=== PATIENT | male | born 1935 | race African-American/Black ===

== ENCOUNTER → 2016-10-02 | Outpatient (CLI) | payer MEDICARE | LOC: OD 09:43 | PROVIDERS: ATTEND Family Medicine | DX: M25.511 Pain in right shoulder (principal) ==

== ENCOUNTER → 2017-04-19 | Outpatient (CLI) | payer MEDICARE ==
--- NOTE | 2017-04-20 08:57 | XCELERA REPORT ---
[address] [address] Transthoracic Echocardiogram Report Name: JACI PALOMO Age: 82 yrs Gender: Male : 1935 Patient Status: Outpatient Patient Location: Study Date: 04/19/2017 09:46 AM Height: 65 in Weight: 171 lb BSA: 1.9 m2 Procedure: A complete two-dimensional transthoracic echocardiogram was performed (2D, M-mode, spectral and color flow Doppler). The study was technically adequate with some images being suboptimal in quality. Reason For Study: RBBB Ordering Physician: ZENAIDA BRAGA Performed By: Anne Cottrell Interpretation Summary The left ventricular ejection fraction is normal. There is normal left ventricular wall thickness. The left ventricle is grossly normal size. Doppler measurements suggest pseudonormalized left ventricular relaxation, which is associated with grade II/IV or mild to moderate diastolic dysfunction The right ventricular systolic function is normal. The right atrium is normal in size The left atrial size is normal. There is a trace to mild amount of mitral regurgitation There is no mitral valve stenosis. No aortic regurgitation is present. There is no aortic valve stenosis There is a trace or physiologic amount of tricuspid regurgitation Tricuspid regurgitation jet envelope not well defined to measure RV systolic pressure accurately. The aortic root is not well visualized. The inferior vena cava was not well visualized There is no pericardial effusion. MMode/2D Measurements & Calculations RVDd: 3.2 cm LVIDd: 4.7 cm FS: 35.8 % Ao root diam: 2.8 cm IVSd: 0.86 cm LVIDs: 3.0 cm EDV(Teich): 103.6 ml LVPWd: 0.89 cm ESV(Teich): 36.0 ml Ao root area: 6.1 cm2 EF(Teich): 65.3 % Doppler Measurements & Calculations MV E max bassem: MV dec slope: Ao V2 max: LV V1 max P.5 cm/sec 113.7 cm/sec 2.6 mmHg MV A max bassem: 202.2 cm/sec2 Ao max PG: LV V1 max: 72.2 cm/sec MV dec time: 5.2 mmHg 80.6 cm/sec MV E/A: 0.60 0.22 sec PA V2 max: PI end-d bassem: TR max bassem: 78.2 cm/sec 100.0 cm/sec 215.2 cm/sec PA max PG: TR max P.4 mmHg 18.8 mmHg Left Ventricle The left ventricle is grossly normal size. There is normal left ventricular wall thickness. The left ventricular ejection fraction is normal. Doppler measurements suggest pseudonormalized left ventricular relaxation, which is associated with grade II/IV or mild to moderate diastolic dysfunction. Right Ventricle Borderline right ventricular enlargement. There is normal right ventricular wall thickness. The right ventricular systolic function is normal. Atria The right atrium is normal in size. The left atrial size is normal. Interarterial septum not well visualized and not well dopplered. Cannot comment on ASD/PFO presence. Mitral Valve The mitral valve is grossly normal. There is no mitral valve stenosis. There is a trace to mild amount of mitral regurgitation. Aortic Valve The aortic valve is grossly normal. There is no aortic valve stenosis. No aortic regurgitation is present. Tricuspid Valve The tricuspid valve is not well visualized, but is grossly normal. There is no tricuspid stenosis. There is a trace or physiologic amount of tricuspid regurgitation. Tricuspid regurgitation jet envelope not well defined to measure RV systolic pressure accurately. Pulmonic Valve The pulmonic valve is not well visualized. Great Vessels The aortic root is not well visualized. The inferior vena cava was not well visualized. Effusions There is no pericardial effusion. : ZENAIDA BRAGA > Javed Chicas
== END ==
LOC: SP 09:34
PROVIDERS: ATTEND Family Medicine
DX: I45.10 Unspecified right bundle-branch block (principal)
CPT/HCPCS: 93306

== ENCOUNTER 2017-06-30 07:35 | Day surgery (SDC) | payer MEDICARE ==
[~2017-06-30 07:35] MED LIST: KETOROLAC TROMETHAMINE 0.45% 4 DROP/0.4 ML DROPERETTE OD PRN
[2017-06-30] MEDS: CYCLOPENTOLATE 0.2%/PHENYLEPHRINE 1% OPH SOLN 2 ML OD PRN ×3 (08:02→08:22)
[2017-06-30] MEDS: TROPICAMIDE 1% OPH SOLN 3 ML OD PRN ×3 (08:02→08:22)
[2017-06-30] MEDS: TETRACAINE HCL 0.5% OPH SOLN 0.6 ML DROPERETTE OD PRN ×4 (08:03→08:32)
[2017-06-30] MEDS: BESIFLOXACIN HCL 0.6% OPH SUSP 5 ML BOTTLE OD PRN ×4 (08:03→08:58)
[2017-06-30] MEDS ORDERED: MIDAZOLAM 2 MG/2 ML INJ ONE (08:14)
[2017-06-30] MEDS: CHONDR SU A NA/HYALUR INTRAOC KIT (SURGICARE) ONE ×2 (08:46)
[2017-06-30] MEDS: EPINEPHRINE INJ/PF 1 MG/1 ML AMPULE ONE ×2 (08:46)
[2017-06-30] MEDS: LIDOCAINE 1% INJ-PF (10 MG/ML) 30 ML SDV ONE ×2 (08:46)
[2017-06-30] MEDS: TOBRAMYCIN SULFATE/DEXAMETH OPH OINTMENT 3.5 GM ONE ×2 (08:58)
== END 2017-06-30 09:37 | disposition home or self-care (01) ==
LOC: SC 07:35
PROVIDERS: ATTEND Ophthalmology
PROC: 08RJ3JZ Replacement of Right Lens with Synthetic Substitute, Percutaneous Approach (ICD-10-PCS; principal; 2017-06-30 08:30)
DX: H25.11 Age-related nuclear cataract, right eye (principal); E11.9 Type 2 diabetes mellitus without complications; I10 Essential (primary) hypertension; E07.9 Disorder of thyroid, unspecified; Z79.82 Long term (current) use of aspirin; Z79.899 Other long term (current) drug therapy; Z88.0 Allergy status to penicillin; Z79.84 Long term (current) use of oral hypoglycemic drugs
CPT/HCPCS: 66984; 82962; V2630; J2250; J3490 ×3; A9270; J0171; 142

== ENCOUNTER 2017-07-14 07:21 | Day surgery (SDC) | payer MEDICARE ==
[~2017-07-14 07:21] MED LIST changes: +CHONDR SU A NA/HYALUR INTRAOC KIT (SURGICARE) ONE; +EPINEPHRINE INJ/PF 1 MG/1 ML AMPULE ONE; -KETOROLAC TROMETHAMINE 0.45% 4 DROP/0.4 ML DROPERETTE OD PRN; +KETOROLAC TROMETHAMINE 0.45% 4 DROP/0.4 ML DROPERETTE OS PRN; +LIDOCAINE 1% INJ-PF (10 MG/ML) 30 ML SDV ONE; +TOBRAMYCIN SULFATE/DEXAMETH OPH OINTMENT 3.5 GM ONE
[2017-07-14] MEDS: CYCLOPENTOLATE 0.2%/PHENYLEPHRINE 1% OPH SOLN 2 ML OS PRN ×3 (07:50→08:08)
[2017-07-14] MEDS: TETRACAINE HCL 0.5% OPH SOLN 0.6 ML DROPERETTE OS PRN ×3 (07:50→08:12)
[2017-07-14] MEDS: TROPICAMIDE 1% OPH SOLN 3 ML OS PRN ×3 (07:51→08:08)
[2017-07-14] MEDS: BESIFLOXACIN HCL 0.6% OPH SUSP 5 ML BOTTLE OS PRN ×3 (07:52→08:32)
[2017-07-14] MEDS ORDERED: MIDAZOLAM 2 MG/2 ML INJ ONE ×2 (07:59→08:00)
== END 2017-07-14 09:12 | disposition home or self-care (01) ==
LOC: SC 07:21
PROVIDERS: ATTEND Ophthalmology
PROC: 08RK3JZ Replacement of Left Lens with Synthetic Substitute, Percutaneous Approach (ICD-10-PCS; principal; 2017-07-14 08:15)
DX: H25.12 Age-related nuclear cataract, left eye (principal); Z98.41 Cataract extraction status, right eye; E05.90 Thyrotoxicosis, unspecified without thyrotoxic crisis or storm; I49.9 Cardiac arrhythmia, unspecified; E11.9 Type 2 diabetes mellitus without complications; Z79.82 Long term (current) use of aspirin; Z88.0 Allergy status to penicillin; Z79.899 Other long term (current) drug therapy
CPT/HCPCS: 66984; 82962; V2630; J2250; J3490 ×3; A9270; J0171; 142

== ENCOUNTER → 2020-04-18 | Outpatient (CLI) | payer MEDICARE ==
--- NOTE | 2020-04-18 16:30 | RADIOLOGY REPORT (SQ) ---
EXAM DESCRIPTION: L SPINE WHOLE IMAGES COMPLETED DATE/TIME: 04/18/2020 4:24 pm REASON FOR STUDY: M54.10 RADICULOPATHY, SITE UNSPECIFIED M25.559 PAIN IN UNSPECIFIED HIP M54.10 RA DICULOPATHY, SITE UNSPECIFIED COMPARISON: None. NUMBER OF VIEWS: Five views including obliques. TECHNIQUE: AP, lateral, oblique, and sacral radiographic images acquired of the lumbar spine. LIMITATIONS: None. FINDINGS: MINERALIZATION: Normal. SEGMENTATION: Normal. No transitional anatomy. ALIGNMENT: Normal. VERTEBRAE: Maintained height. No fracture or worrisome bone lesion. DISCS: Multilevel disc space narrowing with osteophytes. POSTERIOR ELEMENTS: Pedicles and facets are intact. No pars defect or posterior arch defects. Facet arthropathy is present. HARDWARE: None in the spine. PARASPINAL SOFT TISSUES: Normal. PELVIS: Intact as visualized. No fractures or worrisome bone lesions. SI joints intact. OTHER: No other significant finding. IMPRESSION: SPONDYLOSIS WITHOUT BONE LESION OR FRACTURE. TECHNICAL DOCUMENTATION: JOB ID: [id number] 2010 [employer]- All Rights Reserved Reading location - IP/workstation name: [email or web address]
--- NOTE | 2020-04-18 16:31 | RADIOLOGY REPORT (SQ) ---
EXAM DESCRIPTION: HIP LEFT AP/LATERAL IMAGES COMPLETED DATE/TIME: 04/18/2020 4:24 pm REASON FOR STUDY: M25.559 PAIN IN UNSPECIFIED HIP M25.559 PAIN IN UNSPECIFIED HIP M54.10 RADICULOP ATHY, SITE UNSPECIFIED COMPARISON: None. NUMBER OF VIEWS: Two views. TECHNIQUE: AP pelvis and additional frog legview of the left hip. LIMITATIONS: None. FINDINGS: MINERALIZATION: Normal. LEFT HIP: No fracture or dislocation. No worrisome bone lesions. No contour deformity. No joint spa ce narrowing. Sclerosis with small osteophytes. RIGHT HIP: No fracture or dislocation. No worrisome bone lesions. Sclerosis with small osteophytes. Limited views. PUBIS AND ISCHIUM: No fracture. PELVIS: No fracture. SACRUM: No fracture or dislocation. No worrisome bone lesions. LOWER LUMBAR SPINE: No fracture or dislocation. No worrisome bone lesions. No significant disc disea se. SOFT TISSUES: No findings. OTHER: No other significant finding. IMPRESSION: MILD DEGENERATIVE CHANGES. NO ACUTE FINDINGS. TECHNICAL DOCUMENTATION: JOB ID: [id number] 2010 [employer]- All Rights Reserved Reading location - IP/workstation name: [email or web address]
== END ==
LOC: RAD 16:05
PROVIDERS: ATTEND Family Medicine
DX: M16.12 Unilateral primary osteoarthritis, left hip (principal); M25.552 Pain in left hip; M47.26 Other spondylosis with radiculopathy, lumbar region
CPT/HCPCS: 72110

== ENCOUNTER 2020-06-21 14:42 | Inpatient (IN) | payer MEDICARE ==
--- NOTE | 2020-06-21 15:29 | RADIOLOGY REPORT (SQ) ---
EXAM DESCRIPTION: CHEST SINGLE VIEW IMAGES COMPLETED DATE/TIME: 06/21/2020 3:16 pm REASON FOR STUDY: shortness of breath COMPARISON: None. EXAM PARAMETERS: NUMBER OF VIEWS: One view. TECHNIQUE: Single frontal radiographic view of the chest acquired. RADIATION DOSE: NA LIMITATIONS: None. FINDINGS: LUNGS AND PLEURA: There is ill-defined opacification in the left lower lung field. No foc al consolidation. MEDIASTINUM AND HILAR STRUCTURES: No masses. Contour normal. HEART AND VASCULAR STRUCTURES: Heart normal in size. Normal vasculature. BONES: No acute findings. HARDWARE: None in the chest. OTHER: No other significant finding. IMPRESSION: Cannot exclude a limited left lower lobe pneumonia. TECHNICAL DOCUMENTATION: JOB ID: [id number] 2010 [employer]- All Rights Reserved Reading location - IP/workstation name: [email or web address]
[2020-06-21 15:38] LABS: VENOUS BLOOD BASE EXCESS -0.6 mmol/L; VENOUS BLOOD HCO3 24.6 mmol/L (20-32); VENOUS BLOOD PCO2 42.6 mmHg (35-63); VENOUS BLOOD PH 7.38 (7.30-7.42)
[2020-06-21] MEDS ORDERED: NORMAL SALINE 1000 ML 1,000 ML IV ONE (15:39)
--- NOTE | 2020-06-21 15:39 | ER Document Report ---
ED Respiratory Problem - General Chief Complaint: Shortness Of Breath Stated Complaint: SHORT OF BREATH Time Seen by Provider: 06/21/20 15:32 Mode of Arrival: Medic Information source: Patient Notes: 85-year-old man presenting to the emergency department history of diagnosed with coronavirus on Wednesday of this past week 06/18/2020. He complains of increasing weakness over the past week along with loss of smell and taste. He is a poor intake as well as increasing cough and over the past 24 hours shortness of breath. His granddaughter is also positive for coronavirus. History of diabet es mellitus TRAVEL OUTSIDE OF THE [place] IN LAST 30 DAYS: No - Related Data Allergies/Adverse Reactions: Penicillins Allergy (Intermediate, Verified 06/24/17 14:33) Hives Past Medical History - General Information source: Patient - Social History Smoking Status: Unknown if Ever Smoked Family History: Reviewed & Not Pertinent - Past Medical History Cardiac Medical History: Denies: Hx Heart Attack, Hx Hypertension Pulmonary Medical History: Denies: Hx Asthma Neurological Medical History: Denies: Hx Cerebrovascular Accident, Hx Seizures GI Medical History: Denies: Hx Hepatitis, Hx Hiatal Hernia, Hx Ulcer Infectious Medical History: Denies: Hx Hepatitis Past Surgical History: Denies: Hx Open Heart Surgery, Hx Pacemaker Review of Systems - Review of Systems Notes: Constitutional: Negative for fever. HENT: Negative for sore throat. Eyes: Negative for visual changes. Cardiovascular: See HPI Respiratory: Negative for shortness of breath. Gastrointestinal: Negative for abdominal pain, vomiting or diarrhea. Genitourinary: Negative for dysuria. Musculoskeletal: Negative for back pain. Skin: Negative for rash. Neurological: Negative for headaches, weakness or numbness. 10 point ROS negative except as marked above and in HPI. Physical Exam - Vital signs Vitals: Pulse Ox 86 L 06/21/20 15:03 - Notes Notes: PHYSICAL EXAMINATION: Physical Exam: General: Well-nourished well-developed 85-year-old male in with shortness of breath HEENT: NC/AT, pupils equal round and reactive to light, MM moist,nares clear, oropharynx clear, airway patent Neck: supple, no adenopathy, no masses. Good range of motion Lungs: clear, no wheezing, no rales no rhonchi CVS: Regular rate and rhythm no murmur gallop or rub Abdomen: Soft, active, nontender, no masses, no hepatosplenomegaly Ext: No edema, clubbing or cyanosis. Neuro: Alert and responsive, moving all 4 extremities on command, cranial nerves intact, no focal findings Skin: Intact no open lesions, no rash Course - Re-evaluation Re-evalutation: 06/21/20 18:17 Patient with known coronavirus 19 positive outpatient tests 06/18/2020. Presents with pneumonia and hypoxia. He is being admitted to the hospital, tammy lemus has an allergy to penicillin states he had a rash many years ago. I am giving him ceftriaxone 1 g IV along with Zithromax 100 mg IV and Decadron 6 mg IV. I have discussed the patient with the hospitalist and Dr. Zee will await the patient to the hospital for further evaluation and treatment. - Vital Signs Vital signs: Temp Pulse Resp BP Pulse Ox 101.1 F H 23 H 134/79 H 91 L 06/21/20 16:00 06/21/20 16:00 06/21/20 16:00 06/21/20 16:00 - Laboratory Results Result Diagrams: 06/21/20 15:16 06/21/20 15:16 Laboratory Results Interpreted: 06/21/20 06/21/20 06/21/20 15:16 15:16 15:20 Hgb 12.8 L Lymph % (Auto) 11.8 L Seg Neutrophils % 78.6 H ESR D-Dimer Carbonic Acid 1.03 L ABG pCO2 34.1 L ABG pO2 51.4 L ABG O2 Saturation 87.7 L Sodium 132.7 L Chloride 97 L BUN 23 H Creatinine 1.50 H Est GFR ( Amer) 54 L Est GFR (MDRD) Non-Af 45 L Glucose 140 H Ferritin AST 70 H Lactate Dehydrogenase C-Reactive Protein Urine Protein Urine Ascorbic Acid 06/21/20 06/21/20 06/21/20 15:43 15:43 15:43 Hgb Lymph % (Auto) Seg Neutrophils % ESR 60 H D-Dimer 1.44 H Carbonic Acid ABG pCO2 ABG pO2 ABG O2 Saturation Sodium Chloride BUN Creatinine Est GFR ( Amer) Est GFR (MDRD) Non-Af Glucose Ferritin AST Lactate Dehydrogenase C-Reactive Protein 36.7 H Urine Protein Urine Ascorbic Acid 06/21/20 06/21/20 15:43 16:30 Hgb Lymph % (Auto) Seg Neutrophils % ESR D-Dimer Carbonic Acid ABG pCO2 ABG pO2 ABG O2 Saturation Sodium Chloride BUN Creatinine Est GFR ( Amer) Est GFR (MDRD) Non-Af Glucose Ferritin 1050.00 H AST Lactate Dehydrogenase 467 H C-Reactive Protein Urine Protein 30 H Urine Ascorbic Acid 40 H I have reviewed laboratory data and used this information for the treatment decisions regarding the patient. Critical Laboratory Results Reviewed: No Critical Results - Radiology Results Radiology Results Interpreted: 06/21/20 17:55 Chest X-Ray 06/21/20 15:03 IMPRESSION: Cannot exclude a limited left lower lobe pneumonia. Critical Radiology Results Reviewed: No Critical Results - EKG Interpretation by [place] Rate: Normal - EKG interpreted by Dr. Sales: Normal sinus rhythm, rate 99, MT interval 124 ms QT interval 368 ms, left axis deviation, right bundle branch block, no acute ST or T wave abnormalities, , there is no prior EKG for comparison. Interpretation: Abnormal EKG Discharge - Discharge Clinical Impression: SARS-associated coronavirus infection, Hypoxia Pneumonia Qualifiers: Pneumonia type: due to unspecified organism Laterality: left Lung location: lower lobe of lung Qualified Code(s): J18.9 - Pneumonia, unspecified organism Condition: Good Disposition: ADMITTED INPATIENT Admitting Provider: Saadia (Hospitalist) Unit Admitted: [facility]
[2020-06-21 15:41] LABS: ARTERIAL BLOOD BASE EXCESS -1.6 mmol/L; ARTERIAL BLOOD H2CO3 1.03 mmol/L (1.05-1.35); ARTERIAL BLOOD HCO3 22.1 mmol/L (20-24); ARTERIAL BLOOD O2 SATURATION 87.7 % (94-98); ARTERIAL BLOOD PCO2 34.1 mmHg (35-45); ARTERIAL BLOOD PH 7.43 (7.35-7.45); ARTERIAL BLOOD PO2 51.4 mmHg (80-100); ARTERIAL BLOOD TOTAL CO2 23.1 mmol/L (23-27)
[2020-06-21 15:42] LABS: ARTERIAL BLOOD FIO2 6L
[2020-06-21] MEDS ORDERED: DEXAMETHASONE SOD PHOS INJ 10 MG/1 ML VIAL IV ONE (15:46)
[2020-06-21 15:51] LABS: ABSOLUTE LYMPHOCYTES (AUTO) 1.1 10^3/uL (0.5-4.7); ABSOLUTE MONOCYTES (AUTO) 0.9 10^3/uL (0.1-1.4); ABSOLUTE NEUT (AUTO) 7.4 10^3/uL (1.7-8.2); BASOPHILS % (AUTO) 0.4 % (0-2); HEMATOCRIT 39.9 % (37.9-51.0); HEMOGLOBIN 12.8 g/dL (13.5-17.0); LYMPHOCYTES % (AUTO) 11.8 % (13-45); MEAN CORPUSCULAR HEMOGLOBIN 28.8 pg (27.0-33.4); MEAN CORPUSCULAR HGB CONC 32.1 g/dL (32.0-36.0); MEAN CORPUSCULAR VOLUME 90 fl (80-97); MONOCYTES % (AUTO) 9.2 % (3-13); PLATELET COUNT 230 10^3/uL (150-450); RED BLOOD COUNT 4.44 10^6/uL (4.35-5.55); RED CELL DISTRIBUTION WIDTH 12.2 % (11.5-14.0); SEGMENTED NEUTROPHILS % (AUTO) 78.6 % (42-78); TOTAL CELLS COUNTED % (AUTO) 100 %; WHITE BLOOD COUNT 9.4 10^3/uL (4.0-10.5)
[2020-06-21 15:54] LABS: ALBUMIN 4.1 g/dL (3.5-5.0); ALKALINE PHOSPHATASE 80 U/L (38-126); ANION GAP 10 (5-19); ASPARTATE AMINO TRANSFERASE 70 U/L (17-59); BILIRUBIN,DIRECT 0.1 mg/dL (0.0-0.4); BILIRUBIN,TOTAL 1.2 mg/dL (0.2-1.3); BLOOD UREA NITROGEN 23 mg/dL (7-20); CALCIUM 8.8 mg/dL (8.4-10.2); CARBON DIOXIDE 26 mmol/L (22-30); CHLORIDE 97 mmol/L (98-107); GLUCOSE 140 mg/dL (75-110); POTASSIUM 4.4 mmol/L (3.6-5.0); TOTAL PROTEIN 7.8 g/dL (6.3-8.2)
[2020-06-21] MEDS ORDERED: ACETAMINOPHEN 325 MG TABLET PO ONE (16:26)
[2020-06-21 17:07] LABS: APPEARANCE,URINE CLEAR; BILIRUBIN,URINE NEGATIVE (NEGATIVE); COLOR,URINE YELLOW; GLUCOSE, URINE NEGATIVE (NEGATIVE); KETONES,URINE NEGATIVE (NEGATIVE); LEUKOCYTE ESTERASE,URINE NEGATIVE (NEGATIVE); NITRITE,URINE NEGATIVE (NEGATIVE); PROTEIN,URINE 30 mg/dL (NEGATIVE); URINE SPECIFIC GRAVITY 1.011; UROBILINOGEN,URINE NEGATIVE mg/dL (<2.0)
[2020-06-21] MEDS ORDERED: CEFTRIAXONE INJ 1000 MG VIAL IV ONE (17:46)
[2020-06-21] MEDS ORDERED: AZITHROMYCIN INJ 500 MG VIAL IV ONE (17:48)
[2020-06-21] MEDS ORDERED: DEXTROSE 40% GEL 15 GM TUBE PO PRN ×2 (20:18)
[2020-06-21] MEDS ORDERED: DEXTROSE 50%-WATER 25 GM/50 ML DISP.SYRIN IV PRN ×2 (20:18)
[2020-06-21] MEDS ORDERED: GLUCAGON,HUMAN RECOMB 1 MG INJ IM PRN (20:18)
[2020-06-21] MEDS ORDERED: ACETAMINOPHEN 325 MG TABLET PO PRN (20:23)
[2020-06-21] MEDS ORDERED: AZTREONAM INJ 1 GM VIAL IV SCH (20:30)
[2020-06-21] MEDS ORDERED: IVERMECTIN 3 MG TABLET PO ONE (21:00)
--- NOTE | 2020-06-21 21:49 | EKG REPORT ---
SEVERITY:- ABNORMAL ECG - SINUS RHYTHM RIGHT BUNDLE BRANCH BLOCK : Confirmed by: Fan Sanchez MD 21-Jun-2020 21:49:19
[2020-06-21] MEDS: MELATONIN 5 MG TABLET PO SCH (22:46)
[2020-06-21] MEDS: ZINC SULFATE 220 MG CAPSULE PO SCH (22:47)
[2020-06-21] MEDS: CHOLECALCIFEROL (D3) 1,000 UNIT (25 MCG) TABLET PO SCH (22:48)
[2020-06-21] MEDS ORDERED: IVERMECTIN 3 MG TABLET ONE (22:49)
[2020-06-21] MEDS: INSULIN LISPRO 100 UNIT/ML 3 ML VIAL SUBCUT SCH (23:04)
[2020-06-21] MEDS: VITAMIN B COMPLEX TABLET PO SCH (23:23)
[2020-06-22] MEDS: ASCORBIC ACID 500 MG TABLET PO SCH ×4 (00:12→18:10)
[2020-06-22] MEDS: AZTREONAM 1 GM in DEXTROSE 5%-WATER 50 ML IV SCH ×3 (01:57→18:09)
[2020-06-22] MEDS: NORMAL SALINE 1000 ML 1,000 ML IV PRN ×2 (07:39→19:00)
[2020-06-22] MEDS: INSULIN LISPRO 100 UNIT/ML 3 ML VIAL SUBCUT SCH ×4 (07:39→21:43)
--- NOTE | 2020-06-22 09:38 | PDOC H&P ---
History of Present Illness Admission Date/PCP: 06/21/20 18:17 ZENAIDA BRAGA MD Patient complains of: Difficulty with breathing History of Present Illness: JACI PALOMO is a 85 year old male patient of Dr. Braga who presented to the ED with recent diagnosis of positive status for COVID-19 infection and worsening shortness of breath, particularly with exertion. Patient reported associated minimally productive cough, loss of smell and taste over last one week. He claimed associated worsening generalized weakness. He admitted exposure to his granddaughter was was recently diagnosed with faulkner virus infection. He denied any diarrhea or abdominal pain. No chest pain or palpitation. His initial ED evaluation was significant for elevation of inflammatory indices and D-Dimer, electrolytes derangement, and chest X ray suggestive of left lower lobe airspace disease process. He was advised hospitalization for further evaluation and management. His morbidities are as listed below. Past Medical History Cardiac Medical History: Denies: Myocardial Infarction, Hypertension Pulmonary Medical History: Denies: Asthma Neurological Medical History: Denies: Seizures Endocrine Medical History: Reports: Diabetes Mellitus Type 2, Hypothyroidism GI Medical History: Denies: Hepatitis, Hiatal Hernia Musculoskeltal Medical History: Reports: Arthritis Hematology: Denies: Anemia, Sickle Cell Disease Past Surgical History Past Surgical History: Denies: Pacemaker Social History Smoking Status: Unknown if Ever Smoked - Advance Directive Resuscitation Status: Full Code Family History Family History: Reviewed & Not Pertinent Parental Family History Reviewed: Yes Children Family History Reviewed: Yes Sibling(s) Family History Reviewed.: Yes Medication/Allergy Home Medications: Aspirin [Aspirin EC] 81 mg PO DAILY 06/24/17 Besifloxacin HCl [Besivance 0.6% Oph Susp 5 ml] 1 drop OP ASDIR 06/24/17 Cholecalciferol (Vitamin D3) [Vitamin D3 1000 Unit Tablet] 1,000 unit PO DAILY 06/24/17 Difluprednate [Durezol] 1 drop OP ASDIR 06/24/17 Glucosamine Sulfate Dipot Chlr [Glucosamine] 1,000 mg PO DAILY 06/24/17 Glyburide 2.5 mg PO BID 06/24/17 Ibuprofen [Advil] 200 mg PO Q4HP PRN 06/24/17 Levothyroxine Sodium [Synthroid 0.025 mg Tablet] 25 mcg PO QAM 06/24/17 Multivitamin [Multivitamins] 1 each PO DAILY 06/24/17 Nepafenac [Ilevro] 1 drop OP ASDIR 06/24/17 [place]-3 Fatty Acids/Fish Oil [Fish Oil 1,000 mg Capsule] 1 each PO DAILY 06/24/17 Psyllium Husk [Metamucil] 660 gm PO DAILY 06/24/17 Allergies/Adverse Reactions: Penicillins Allergy (Intermediate, Verified 06/24/17 14:33) Hives Review of Systems Constitutional: PRESENT: fatigue, weakness. ABSENT: chills, fever(s), headache(s) Eyes: ABSENT: visual disturbances Ears: ABSENT: hearing changes Cardiovascular: PRESENT: dyspnea on exertion. ABSENT: chest pain, edema, orth ropnea, palpitations Respiratory: PRESENT: cough, sputum. ABSENT: hemoptysis Gastrointestinal: PRESENT: other - loss of smell and taste. ABSENT: abdominal pain, constipation, diarrhea, hematemesis, hematochezia, nausea, vomiting Genitourinary: ABSENT: dysuria, hematuria Musculoskeletal: ABSENT: joint swelling Integumentary: ABSENT: rash, wounds Neurological: ABSENT: abnormal gait, abnormal speech, confusion, dizziness, focal weakness, syncope Psychiatric: ABSENT: anxiety, depression, homidical ideation, suicidal ideation Endocrine: ABSENT: cold intolerance, heat intolerance, polydipsia, polyuria Hematologic/Lymphatic: ABSENT: easy bleeding, easy bruising, lymphadenopathy Allergic/Immunologic: ABSENT: seasonal rhinorrhea Physical Exam Vital Signs: Temp Pulse Resp BP Pulse Ox 101.1 F H 23 H 134/79 H 91 L 06/21/20 16:00 06/21/20 16:00 06/21/20 16:00 06/21/20 16:00 Intake & Output 06/20/20 06/21/20 06/22/20 06:59 06:59 06:59 Intake Total 1000 Balance 1000 Weight 77.111 kg General appearance: PRESENT: mild distress - on nonrebreathing face mask supplemental oxygen Head exam: PRESENT: atraumatic, normocephalic Eye exam: PRESENT: conjunctiva pink, EOMI, PERRLA. ABSENT: scleral icterus Ear exam: PRESENT: normal external ear exam Mouth exam: PRESENT: moist Neck exam: PRESENT: full ROM. ABSENT: carotid bruit, JVD, lymphadenopathy, thyromegaly Respiratory exam: PRESENT: clear to auscultation robin, decreased breath sounds - at lung bases Cardiovascular exam: PRESENT: RRR, +S1, +S2. ABSENT: diastolic murmur, rubs, systolic murmur Vascular exam: PRESENT: normal capillary refill. ABSENT: pallor GI/Abdominal exam: PRESENT: normal bowel sounds, soft. ABSENT: distended, guarding, mass, organolmegaly, rebound, tenderness Rectal exam: PRESENT: deferred Extremities exam: ABSENT: pedal edema Neurological exam: PRESENT: alert, awake, oriented to person, oriented to place, oriented to time, oriented to situation, CN II-XII grossly intact. ABSENT: motor sensory deficit Psychiatric exam: PRESENT: appropriate affect, normal mood. ABSENT: homicidal ideation, suicidal ideation Skin exam: PRESENT: dry, intact, warm. ABSENT: cyanosis, rash Results Laboratory Results: 06/21/20 15:16 06/21/20 15:16 06/21/20 06/21/20 06/21/20 15:16 15:16 15:16 WBC 9.4 RBC 4.44 Hgb 12.8 L Hct 39.9 MCV 90 MCH 28.8 MCHC 32.1 RDW 12.2 Plt Count 230 Seg Neutrophils % 78.6 H Carbonic Acid HCO3/H2CO3 Ratio ABG pH ABG pCO2 ABG pO2 ABG HCO3 ABG O2 Saturation ABG Base Excess VBG pH 7.38 VBG pCO2 42.6 VBG HCO3 24.6 VBG Base Excess -0.6 FiO2 Sodium 132.7 L Potassium 4.4 Chloride 97 L Carbon Dioxide 26 Anion Gap 10 BUN 23 H Creatinine 1.50 H Est GFR ( Amer) 54 L Glucose 140 H Calcium 8.8 Ferritin Total Bilirubin 1.2 AST 70 H Alkaline Phosphatase 80 C-Reactive Protein Total Protein 7.8 Albumin 4.1 Urine Color Urine Appearance Urine pH Ur Specific [place] Urine Protein Urine Glucose (UA) Urine Ketones Urine Blood Urine Nitrite Ur Leukocyte Esterase Urine WBC (Auto) Urine RBC (Auto) 06/21/20 06/21/20 06/21/20 15:20 15:43 15:43 WBC RBC Hgb Hct MCV MCH MCHC RDW Plt Count Seg Neutrophils % Carbonic Acid 1.03 L HCO3/H2CO3 Ratio 21:1 ABG pH 7.43 ABG pCO2 34.1 L ABG pO2 51.4 L ABG HCO3 22.1 ABG O2 Saturation 87.7 L ABG Base Excess -1.6 VBG pH VBG pCO2 VBG HCO3 VBG Base Excess FiO2 6L Sodium Potassium Chloride Carbon Dioxide Anion Gap BUN Creatinine Est GFR ( Amer) Glucose Calcium Ferritin 1050.00 H Total Bilirubin AST Alkaline Phosphatase C-Reactive Protein 36.7 H Total Protein Albumin Urine Color Urine Appearance Urine pH Ur Specific [place] Urine Protein Urine Glucose (UA) Urine Ketones Urine Blood Urine Nitrite Ur Leukocyte Esterase Urine WBC (Auto) Urine RBC (Auto) 06/21/20 16:30 WBC RBC Hgb Hct MCV MCH MCHC RDW Plt Count Seg Neutrophils % Carbonic Acid HCO3/H2CO3 Ratio ABG pH ABG pCO2 ABG pO2 ABG HCO3 ABG O2 Saturation ABG Base Excess VBG pH VBG pCO2 VBG HCO3 VBG Base Excess FiO2 Sodium Potassium Chloride Carbon Dioxide Anion Gap BUN Creatinine Est GFR ( Amer) Glucose Calcium Ferritin Total Bilirubin AST Alkaline Phosphatase C-Reactive Protein Total Protein Albumin Urine Color YELLOW Urine Appearance CLEAR Urine pH 6.0 Ur Specific [place] 1.011 Urine Protein 30 H Urine Glucose (UA) NEGATIVE Urine Ketones NEGATIVE Urine Blood NEGATIVE Urine Nitrite NEGATIVE Ur Leukocyte Esterase NEGATIVE Urine WBC (Auto) 1 Urine RBC (Auto) 1 Impressions: Chest X-Ray 06/21/20 15:03 IMPRESSION: Cannot exclude a limited left lower lobe pneumonia. Assessment & Plan - Diagnosis (1) SARS-associated coronavirus infection Is this a current diagnosis for this admission?: Yes Plan: See covering admitting attending physician orders for details about care plan. (2) Pneumonia Qualifiers: Pneumonia type: due to unspecified organism Laterality: left Lung location: lower lobe of lung Qualified Code(s): J18.9 - Pneumonia, unspecified organism Is this a current diagnosis for this admission?: Yes Plan: See covering admitting attending physician orders for details about care plan. (3) Hypoxia Is this a current diagnosis for this admission?: Yes Plan: See covering admitting attending physician orders for details about care plan. (4) Diabetes mellitus type 2 in nonobese Is this a current diagnosis for this admission?: Yes Plan: See covering admitting attending physician orders for details about care plan. (5) Hypothyroidism Qualifiers: Hypothyroidism type: unspecified Qualified Code(s): E03.9 - Hypothyroidism, unspecified Is this a current diagnosis for this admission?: Yes Plan: See covering admitting attending physician orders for details about care plan. - Time Time Spent: 50 to 70 Minutes Medications reviewed and adjusted accordingly: Yes Anticipated Discharge Disposition: Home with Home Health Anticipated Discharge Timeframe: within 72 hours - Inpatient Certification Based on my medical assessment, after consideration of the patient's comorbidities, presenting symptoms, or acuity I expect that the services needed warrant INPATIENT care.: Yes I certify that my determination is in accordance with my understanding of Medicare's requirements for reasonable and necessary INPATIENT services [42 CFR 412.3e].: Yes Medical Necessity: Significant Comorbidiites Make Outpatient Treatment Too Risky, Need Close Monitoring Due to Risk of Patient Decompensation, Need For IV Fluids, Need For Continuous Telemetry Monitoring, Need for IV Antibiotics, Risk of Complication if Not Cared For in Hospital, Risk of Diagnosis Which Will Require Inpatient Eval/Care/Monitoring Post Hospital Care: D/C Purchasing Expeditor Documentation - Plan Summary Plan Summary: See covering admitting attending physician orders for details about care plan.
--- NOTE | 2020-06-22 09:43 | PDOC PROGRESS REPORT ---
Subjective Date:: 06/22/20 Subjective:: Patient continue to demonstrate hypoxemia with exertion. No chest pain. No abdom inal pain, diarrhea, nausea or vomiting. Reason For Visit: COVID-19 PNEUMONIA; DM TYPE 2; HYPOTHRYOIDISM Physical Exam Vital Signs: Temp Pulse Resp BP Pulse Ox 101.1 F H 17 129/71 H 86 L 06/21/20 16:00 06/22/20 06:30 06/22/20 06:30 06/22/20 06:30 Intake & Output 06/21/20 06/22/20 06/23/20 06:59 06:59 06:59 Intake Total 1000 Balance 1000 Weight 77.111 kg General appearance: PRESENT: mild distress Head exam: PRESENT: atraumatic, normocephalic Eye exam: PRESENT: conjunctiva pink. ABSENT: scleral icterus Mouth exam: PRESENT: moist Respiratory exam: PRESENT: clear to auscultation robin, crackles - at lung bases, decreased breath sounds - at lung bases Cardiovascular exam: PRESENT: RRR, +S1, +S2. ABSENT: diastolic murmur, systolic murmur Vascular exam: ABSENT: pallor GI/Abdominal exam: PRESENT: normal bowel sounds, soft. ABSENT: tenderness Extremities exam: ABSENT: pedal edema Neurological exam: PRESENT: alert, awake Psychiatric exam: ABSENT: agitated, anxious Skin exam: PRESENT: dry, warm Results Laboratory Results: 06/21/20 15:16 06/21/20 15:16 06/21/20 06/21/20 06/21/20 15:16 15:16 15:16 WBC 9.4 RBC 4.44 Hgb 12.8 L Hct 39.9 MCV 90 MCH 28.8 MCHC 32.1 RDW 12.2 Plt Count 230 Seg Neutrophils % 78.6 H Carbonic Acid HCO3/H2CO3 Ratio ABG pH ABG pCO2 ABG pO2 ABG HCO3 ABG O2 Saturation ABG Base Excess VBG pH 7.38 VBG pCO2 42.6 VBG HCO3 24.6 VBG Base Excess -0.6 FiO2 Sodium 132.7 L Potassium 4.4 Chloride 97 L Carbon Dioxide 26 Anion Gap 10 BUN 23 H Creatinine 1.50 H Est GFR ( Amer) 54 L Glucose 140 H Calcium 8.8 Ferritin Total Bilirubin 1.2 AST 70 H Alkaline Phosphatase 80 C-Reactive Protein Total Protein 7.8 Albumin 4.1 Urine Color Urine Appearance Urine pH Ur Specific [place] Urine Protein Urine Glucose (UA) Urine Ketones Urine Blood Urine Nitrite Ur Leukocyte Esterase Urine WBC (Auto) Urine RBC (Auto) 06/21/20 06/21/20 06/21/20 15:20 15:43 15:43 WBC RBC Hgb Hct MCV MCH MCHC RDW Plt Count Seg Neutrophils % Carbonic Acid 1.03 L HCO3/H2CO3 Ratio 21:1 ABG pH 7.43 ABG pCO2 34.1 L ABG pO2 51.4 L ABG HCO3 22.1 ABG O2 Saturation 87.7 L ABG Base Excess -1.6 VBG pH VBG pCO2 VBG HCO3 VBG Base Excess FiO2 6L Sodium Potassium Chloride Carbon Dioxide Anion Gap BUN Creatinine Est GFR ( Amer) Glucose Calcium Ferritin 1050.00 H Total Bilirubin AST Alkaline Phosphatase C-Reactive Protein 36.7 H Total Protein Albumin Urine Color Urine Appearance Urine pH Ur Specific [place] Urine Protein Urine Glucose (UA) Urine Ketones Urine Blood Urine Nitrite Ur Leukocyte Esterase Urine WBC (Auto) Urine RBC (Auto) 06/21/20 16:30 WBC RBC Hgb Hct MCV MCH MCHC RDW Plt Count Seg Neutrophils % Carbonic Acid HCO3/H2CO3 Ratio ABG pH ABG pCO2 ABG pO2 ABG HCO3 ABG O2 Saturation ABG Base Excess VBG pH VBG pCO2 VBG HCO3 VBG Base Excess FiO2 Sodium Potassium Chloride Carbon Dioxide Anion Gap BUN Creatinine Est GFR ( Amer) Glucose Calcium Ferritin Total Bilirubin AST Alkaline Phosphatase C-Reactive Protein Total Protein Albumin Urine Color YELLOW Urine Appearance CLEAR Urine pH 6.0 Ur Specific [place] 1.011 Urine Protein 30 H Urine Glucose (UA) NEGATIVE Urine Ketones NEGATIVE Urine Blood NEGATIVE Urine Nitrite NEGATIVE Ur Leukocyte Esterase NEGATIVE Urine WBC (Auto) 1 Urine RBC (Auto) 1 Impressions: Chest X-Ray 06/21/20 15:03 IMPRESSION: Cannot exclude a limited left lower lobe pneumonia. Assessment & Plan - Diagnosis (1) SARS-associated coronavirus infection Is this a current diagnosis for this admission?: Yes (2) Pneumonia Qualifiers: Pneumonia type: due to unspecified organism Laterality: left Lung location: lower lobe of lung Qualified Code(s): J18.9 - Pneumonia, unspecified organism Is this a current diagnosis for this admission?: Yes (3) Hypoxia Is this a current diagnosis for this admission?: Yes (4) Diabetes mellitus type 2 in nonobese Is this a current diagnosis for this admission?: Yes (5) Hypothyroidism Qualifiers: Hypothyroidism type: unspecified Qualified Code(s): E03.9 - Hypothyroidism, unspecified Is this a current diagnosis for this admission?: Yes - Time Time Spent with patient: 25-34 minutes Level of Care: IMCU Medications reviewed and adjusted accordingly: Yes Anticipated discharge: Home with Homehealth Anticipated DC Timeframe: within 72 hours - Inpatient Certification Based on my medical assessment, after consideration of the patient's comorbidities, presenting symptoms, or acuity I expect that the services needed warrant INPATIENT care.: Yes I certify that my determination is in accordance with my understanding of Medicare's requirements for reasonable and necessary INPATIENT services [42 CFR 412.3e].: Yes Medical Necessity: Significant Comorbidiites Make Outpatient Treatment Too Risky, Need Close Monitoring Due to Risk of Patient Decompensation, Need For IV Fluids, Need For Continuous Telemetry Monitoring, Need for IV Antibiotics, Risk of Complication if Not Cared For in Hospital, Risk of Diagnosis Which Will Require Inpatient Eval/Care/Monitoring Post Hospital Care: D/C Open Cut Examiner Documentation - Plan Summary Plan Summary: Continue IV Azithromycin and Aztreonam coverage. H will receive day 2 Ivermectin dose today. Maintain on all other medication management. Start on BiPAP support. Obtain CBC with diff and CMP in AM.
[2020-06-22] MEDS: CHOLECALCIFEROL (D3) 1,000 UNIT (25 MCG) TABLET PO SCH (12:00)
[2020-06-22] MEDS: VITAMIN B COMPLEX TABLET PO SCH (12:01)
[2020-06-22] MEDS: ZINC SULFATE 220 MG CAPSULE PO SCH (12:01)
[2020-06-22] MEDS: ENOXAPARIN SODIUM INJ 40 MG/0.4 ML DISP.SYRIN SUBCUT SCH (12:01)
[2020-06-22] MEDS: DEXAMETHASONE SOD PHOS INJ 10 MG/1 ML VIAL IV SCH (12:02)
[2020-06-22] MEDS ORDERED: REMDESIVIR 200 MG in NORMAL SALINE 250 ML IV ONE (13:00)
[2020-06-22] MEDS: AZITHROMYCIN 500 MG in DEXTROSE 5%-WATER 250 ML IV SCH (18:00)
[2020-06-22] MEDS: MELATONIN 5 MG TABLET PO SCH (21:14)
[2020-06-22] MEDS ORDERED: IVERMECTIN 3 MG TABLET PO ONE (23:00)
[2020-06-23] MEDS: AZTREONAM 1 GM in DEXTROSE 5%-WATER 50 ML IV SCH ×3 (02:00→17:34)
[2020-06-23] MEDS: ASCORBIC ACID 500 MG TABLET PO SCH ×4 (05:17→17:34)
[2020-06-23] MEDS: NORMAL SALINE 1000 ML 1,000 ML IV PRN ×3 (05:22→21:30)
[2020-06-23 06:12] LABS: HEMATOCRIT 34.9 % (37.9-51.0); HEMOGLOBIN 11.4 g/dL (13.5-17.0); MEAN CORPUSCULAR HEMOGLOBIN 29.1 pg (27.0-33.4); MEAN CORPUSCULAR HGB CONC 32.6 g/dL (32.0-36.0); MEAN CORPUSCULAR VOLUME 89 fl (80-97); PLATELET COUNT 228 10^3/uL (150-450); RED BLOOD COUNT 3.91 10^6/uL (4.35-5.55); RED CELL DISTRIBUTION WIDTH 12.3 % (11.5-14.0); WHITE BLOOD COUNT 9.1 10^3/uL (4.0-10.5)
[2020-06-23 06:28] LABS: ALKALINE PHOSPHATASE 60 U/L (38-126); ANION GAP 5 (5-19); ASPARTATE AMINO TRANSFERASE 50 U/L (17-59); BILIRUBIN,DIRECT 0.1 mg/dL (0.0-0.4); BILIRUBIN,TOTAL 0.7 mg/dL (0.2-1.3); BLOOD UREA NITROGEN 24 mg/dL (7-20); CALCIUM 8.2 mg/dL (8.4-10.2); CARBON DIOXIDE 25 mmol/L (22-30); CHLORIDE 105 mmol/L (98-107); CHOLESTEROL 103.13 mg/dL (0-200); GLUCOSE 121 mg/dL (75-110); POTASSIUM 4.8 mmol/L (3.6-5.0); TOTAL PROTEIN 6.1 g/dL (6.3-8.2); TRIGLYCERIDES 74 mg/dL (<150)
[2020-06-23 06:39] LABS: DIRECT LDL 56 mg/dL (<100)
[2020-06-23 07:15] LABS: ABSOLUTE LYMPHOCYTES# (MANUAL) 0.9 10^3/uL (0.5-4.7); ABSOLUTE MONOCYTES # (MANUAL) 1.1 10^3/uL (0.1-1.4); BASOPHILS % (MANUAL) 0 % (0-2); EOSINOPHILS % (MANUAL) 0 % (0-6); LYMPHOCYTES % (MANUAL) 10 % (13-45); MONOCYTES % (MANUAL) 12 % (3-13); SEGMENTED NEUTROPHILS % (MAN) 78 % (42-78); TOTAL CELLS COUNTED 100
[2020-06-23 07:19] LABS: ANISOCYTOSIS 1+; BURR CELLS SLIGHT; OVALOCYTES 1+; PLATELET COMMENT ADEQUATE; POIKILOCYTOSIS 1+; TEAR DROP CELLS 1+; TOXIC GRANULATION 1+
[2020-06-23] MEDS: INSULIN LISPRO 100 UNIT/ML 3 ML VIAL SUBCUT SCH ×4 (09:04→21:50)
[2020-06-23] MEDS: DEXAMETHASONE SOD PHOS INJ 10 MG/1 ML VIAL IV SCH (09:35)
[2020-06-23] MEDS: VITAMIN B COMPLEX TABLET PO SCH (09:35)
[2020-06-23] MEDS: CHOLECALCIFEROL (D3) 1,000 UNIT (25 MCG) TABLET PO SCH (09:36)
[2020-06-23] MEDS: ZINC SULFATE 220 MG CAPSULE PO SCH (09:36)
[2020-06-23] MEDS: ENOXAPARIN SODIUM INJ 40 MG/0.4 ML DISP.SYRIN SUBCUT SCH (09:36)
--- NOTE | 2020-06-23 10:53 | PDOC PROGRESS REPORT ---
Subjective Date:: 06/23/20 Subjective:: Patient remain on partial nonrebreathing supplemental oxygen. No chest pain. No abdominal pain, diarrhea, nausea or vomiting. No fever or chills. Reason For Visit: COVID-19 PNEUMONIA; DM TYPE 2; HYPOTHRYOIDISM Physical Exam Vital Signs: Temp Pulse Resp BP Pulse Ox 98.9 F 83 26 H 119/65 91 L 06/23/20 08:57 06/23/20 08:57 06/23/20 08:57 06/23/20 08:57 06/23/20 08:57 Intake & Output 06/22/20 06/23/20 06/24/20 06:59 06:59 06:59 Intake Total 1000 3260 Output Total 225 Balance 1000 3035 Weight 77.111 kg 71.5 kg Physical Exam: General appearance: PRESENT: mild distress Head exam: PRESENT: atraumatic, normocephalic Eye exam: PRESENT: conjunctiva pink. ABSENT: pallor, scleral icterus Mouth exam: PRESENT: moist Respiratory exam: PRESENT: clear to auscultation robin, crackles - at lung bases, decreased breath sounds - at lung bases Cardiovascular exam: PRESENT: RRR, +S1, +S2. ABSENT: diastolic murmur, systolic murmur GI/Abdominal exam: PRESENT: normal bowel sounds, soft. ABSENT: tenderness Extremities exam: ABSENT: pedal edema Neurological exam: PRESENT: alert, awake Psychiatric exam: ABSENT: agitated, anxious Skin exam: PRESENT: dry, warm Results Laboratory Results: 06/23/20 05:02 06/23/20 05:02 06/23/20 06/23/20 05:02 05:02 WBC 9.1 RBC 3.91 L Hgb 11.4 L Hct 34.9 L MCV 89 MCH 29.1 MCHC 32.6 RDW 12.3 Plt Count 228 Seg Neutrophils % Not Reportable Sodium 135.2 L Potassium 4.8 Chloride 105 Carbon Dioxide 25 Anion Gap 5 BUN 24 H Creatinine 1.09 Est GFR ( Amer) > 60 Glucose 121 H Calcium 8.2 L Total Bilirubin 0.7 AST 50 Alkaline Phosphatase 60 Total Protein 6.1 L Albumin 3.0 L Triglycerides 74 Cholesterol 103.13 LDL Cholesterol Direct 56 VLDL Cholesterol 15.0 HDL Cholesterol 32 L Impressions: Chest X-Ray 06/21/20 15:03 IMPRESSION: Cannot exclude a limited left lower lobe pneumonia. Assessment & Plan - Diagnosis (1) SARS-associated coronavirus infection Is this a current diagnosis for this admission?: Yes (2) Pneumonia Qualifiers: Pneumonia type: due to unspecified organism Laterality: left Lung location: lower lobe of lung Qualified Code(s): J18.9 - Pneumonia, unspecified organism Is this a current diagnosis for this admission?: Yes (3) Hypoxia Is this a current diagnosis for this admission?: Yes (4) Diabetes mellitus type 2 in nonobese Is this a current diagnosis for this admission?: Yes (5) Hypothyroidism Qualifiers: Hypothyroidism type: unspecified Qualified Code(s): E03.9 - Hypothyroidism, unspecified Is this a current diagnosis for this admission?: Yes - Time Time Spent with patient: 25-34 minutes Level of Care: IMCU Medications reviewed and adjusted accordingly: Yes Anticipated discharge: Home with Homehealth, SNF Anticipated DC Timeframe: within 72 hours - Inpatient Certification Based on my medical assessment, after consideration of the patient's co morbidities, presenting symptoms, or acuity I expect that the services needed warrant INPATIENT care.: Yes I certify that my determination is in accordance with my understanding of Medicare's requirements for reasonable and necessary INPATIENT services [42 CFR 412.3e].: Yes Medical Necessity: Significant Comorbidiites Make Outpatient Treatment Too Risky, Need Close Monitoring Due to Risk of Patient Decompensation, Need For IV Fluids, Need For Continuous Telemetry Monitoring, Need for IV Antibiotics, Risk of Complication if Not Cared For in Hospital, Risk of Diagnosis Which Will Require Inpatient Eval/Care/Monitoring Post Hospital Care: D/C Planning Lead Documentation, D/C or Transfer Summary - Plan Summary Plan Summary: Continue current medication management.
[2020-06-23] MEDS: REMDESIVIR 100 MG in NORMAL SALINE 250 ML IV SCH (11:24)
[2020-06-23] MEDS: AZITHROMYCIN 500 MG in DEXTROSE 5%-WATER 250 ML IV SCH (18:25)
[2020-06-23] MEDS: MELATONIN 5 MG TABLET PO SCH (21:07)
[2020-06-24] MEDS: AZTREONAM 1 GM in DEXTROSE 5%-WATER 50 ML IV SCH ×3 (06:00→17:02)
[2020-06-24] MEDS: ASCORBIC ACID 500 MG TABLET PO SCH ×5 (07:04→23:44)
[2020-06-24] MEDS: INSULIN LISPRO 100 UNIT/ML 3 ML VIAL SUBCUT SCH ×4 (08:39→21:44)
[2020-06-24] MEDS: CHOLECALCIFEROL (D3) 1,000 UNIT (25 MCG) TABLET PO SCH (10:43)
[2020-06-24] MEDS: ENOXAPARIN SODIUM INJ 40 MG/0.4 ML DISP.SYRIN SUBCUT SCH (10:43)
[2020-06-24] MEDS: ZINC SULFATE 220 MG CAPSULE PO SCH (10:43)
[2020-06-24] MEDS: DEXAMETHASONE SOD PHOS INJ 10 MG/1 ML VIAL IV SCH (10:43)
[2020-06-24] MEDS: VITAMIN B COMPLEX TABLET PO SCH (10:43)
[2020-06-24] MEDS: REMDESIVIR 100 MG in NORMAL SALINE 250 ML IV SCH (12:37)
[2020-06-24] MEDS: AZITHROMYCIN 500 MG in DEXTROSE 5%-WATER 250 ML IV SCH (17:08)
--- NOTE | 2020-06-24 21:28 | PDOC PROGRESS REPORT ---
Subjective Date:: 06/24/20 Subjective:: Patient was admitted for acute hypoxemic respiratory failure due to Covid pneumo nell Reason For Visit: COVID-19 PNEUMONIA; DM TYPE 2; HYPOTHRYOIDISM Physical Exam Vital Signs: Temp Pulse Resp BP Pulse Ox 98.6 F 93 20 127/66 H 96 06/24/20 20:19 06/24/20 20:19 06/24/20 20:19 06/24/20 20:19 06/24/20 20:19 Intake & Output 06/23/20 06/24/20 06/25/20 06:59 06:59 06:59 Intake Total 3260 2827 120 Output Total 225 550 650 Balance 3035 2277 -530 Weight 71.5 kg 72.7 kg General appearance: PRESENT: no acute distress Eye exam: PRESENT: PERRLA Respiratory exam: PRESENT: rhonchi Cardiovascular exam: PRESENT: +S1, +S2 GI/Abdominal exam: PRESENT: soft Neurological exam: PRESENT: alert, CN II-XII grossly intact Results Laboratory Results: 06/23/20 05:02 06/23/20 05:02 06/21/20 16:30 Blood Blood Culture (PCR) - Final Staphylococcus Species Impressions: Chest X-Ray 06/21/20 15:03 IMPRESSION: Cannot exclude a limited left lower lobe pneumonia. Assessment & Plan - Diagnosis (1) Acute hypoxemic respiratory failure Is this a current diagnosis for this admission?: Yes Plan: Continue supplemental oxygen (2) Pneumonia due to COVID-19 virus Is this a current diagnosis for this admission?: Yes Plan: Continue remdesivir, dexamethasone IV antibiotic - Time Time Spent with patient: 35 or more minutes Level of Care: IMCU Medications reviewed and adjusted accordingly: Yes Anticipated discharge: Home Anticipated DC Timeframe: Other
[2020-06-24] MEDS: MELATONIN 5 MG TABLET PO SCH (21:44)
[2020-06-25] MEDS: AZTREONAM 1 GM in DEXTROSE 5%-WATER 50 ML IV SCH ×3 (01:45→18:59)
[2020-06-25] MEDS: NORMAL SALINE 1000 ML 1,000 ML IV PRN (05:38)
[2020-06-25] MEDS: ASCORBIC ACID 500 MG TABLET PO SCH ×4 (05:38→23:01)
[2020-06-25] MEDS: INSULIN LISPRO 100 UNIT/ML 3 ML VIAL SUBCUT SCH ×4 (09:14→21:46)
[2020-06-25] MEDS: DEXAMETHASONE SOD PHOS INJ 10 MG/1 ML VIAL IV SCH (09:16)
[2020-06-25] MEDS: ENOXAPARIN SODIUM INJ 40 MG/0.4 ML DISP.SYRIN SUBCUT SCH (09:16)
[2020-06-25] MEDS: CHOLECALCIFEROL (D3) 1,000 UNIT (25 MCG) TABLET PO SCH (09:16)
[2020-06-25] MEDS: VITAMIN B COMPLEX TABLET PO SCH (09:16)
[2020-06-25] MEDS: ZINC SULFATE 220 MG CAPSULE PO SCH (09:18)
[2020-06-25] MEDS: REMDESIVIR 100 MG in NORMAL SALINE 250 ML IV SCH (10:50)
[2020-06-25] MEDS: AZITHROMYCIN 500 MG in DEXTROSE 5%-WATER 250 ML IV SCH (17:28)
--- NOTE | 2020-06-25 20:00 | PDOC PROGRESS REPORT ---
Subjective Date:: 06/25/20 Subjective:: Patient seen by the bedside, he continues to require supplemental oxygen via hig h flow oxygen, he has acute hypoxemic skylar failure due to Covid pneumonia Reason For Visit: COVID-19 PNEUMONIA; DM TYPE 2; HYPOTHRYOIDISM Physical Exam Vital Signs: Temp Pulse Resp BP Pulse Ox 98.4 F 108 H 20 137/70 H 79 L 06/25/20 17:29 06/25/20 19:00 06/25/20 17:29 06/25/20 17:29 06/25/20 17:29 Intake & Output 06/24/20 06/25/20 06/26/20 06:59 06:59 06:59 Intake Total 3639 620 120 Output Total 550 1475 500 Balance 6909 -85 -384 Weight 72.7 kg 72.1 kg General appearance: PRESENT: mild distress Eye exam: PRESENT: PERRLA Respiratory exam: PRESENT: rhonchi Cardiovascular exam: PRESENT: +S1, +S2 GI/Abdominal exam: PRESENT: soft Neurological exam: PRESENT: alert Results Laboratory Results: 06/23/20 05:02 06/23/20 05:02 06/21/20 16:30 Blood Blood Culture (PCR) - Final Staphylococcus Species Impressions: Chest X-Ray 06/21/20 15:03 IMPRESSION: Cannot exclude a limited left lower lobe pneumonia. Assessment & Plan - Diagnosis (1) Acute hypoxemic respiratory failure Is this a current diagnosis for this admission?: Yes Plan: Patient will continue high flow oxygen, is sometimes alternate with BiPAP on nonrebreathing mask (2) Pneumonia due to COVID-19 virus Is this a current diagnosis for this admission?: Yes Plan: Patient will continue IV dexamethasone remdesivir IV antibiotic (3) Type 2 diabetes mellitus without complications Qualifiers: Diabetes mellitus assisted insulin use: without assisted use Qualified Code(s): E11.9 - Type 2 diabetes mellitus without complications Is this a current diagnosis for this admission?: Yes - Time Time Spent with patient: 35 or more minutes Level of Care: IMCU Medications reviewed and adjusted accordingly: Yes Anticipated discharge: Home Anticipated DC Timeframe: Other
[2020-06-25] MEDS: MELATONIN 5 MG TABLET PO SCH (21:46)
[2020-06-26] MEDS: AZTREONAM 1 GM in DEXTROSE 5%-WATER 50 ML IV SCH ×3 (01:01→17:13)
[2020-06-26] MEDS: NORMAL SALINE 1000 ML 1,000 ML IV PRN (01:02)
[2020-06-26] MEDS: ASCORBIC ACID 500 MG TABLET PO SCH ×4 (05:58→23:33)
[2020-06-26] MEDS: INSULIN LISPRO 100 UNIT/ML 3 ML VIAL SUBCUT SCH ×4 (09:10→22:06)
[2020-06-26] MEDS: DEXAMETHASONE SOD PHOS INJ 10 MG/1 ML VIAL IV SCH (09:13)
[2020-06-26] MEDS: VITAMIN B COMPLEX TABLET PO SCH (09:13)
[2020-06-26] MEDS: ENOXAPARIN SODIUM INJ 40 MG/0.4 ML DISP.SYRIN SUBCUT SCH (09:13)
[2020-06-26] MEDS: ZINC SULFATE 220 MG CAPSULE PO SCH (09:13)
[2020-06-26] MEDS: CHOLECALCIFEROL (D3) 1,000 UNIT (25 MCG) TABLET PO SCH (09:13)
[2020-06-26] MEDS: REMDESIVIR 100 MG in NORMAL SALINE 250 ML IV SCH (10:03)
[2020-06-26 15:16] LABS: ARTERIAL BLOOD BASE EXCESS 2.3 mmol/L; ARTERIAL BLOOD H2CO3 1.28 mmol/L (1.05-1.35); ARTERIAL BLOOD HCO3 27.1 mmol/L (20-24); ARTERIAL BLOOD O2 SATURATION 80.3 % (94-98); ARTERIAL BLOOD PCO2 42.4 mmHg (35-45); ARTERIAL BLOOD PH 7.42 (7.35-7.45); ARTERIAL BLOOD PO2 43.5 mmHg (80-100); ARTERIAL BLOOD TOTAL CO2 28.4 mmol/L (23-27)
[2020-06-26 15:17] LABS: ARTERIAL BLOOD FIO2 100%
[2020-06-26] MEDS: AZITHROMYCIN 500 MG in DEXTROSE 5%-WATER 250 ML IV SCH (17:13)
--- NOTE | 2020-06-26 18:39 | PDOC PROGRESS REPORT ---
Subjective Date:: 06/26/20 Subjective:: Patient seen by bedside she continues to require noninvasive positive pressure, BiPAP he has profound hypoxemia despite FiO2 100% on BiPAP, Patient is awake alert still responsive.There is mild hypercapnia but pH is normal, patient probably is not ready for trach intubation at the moment but he may get there. I called the daughter to explain to about his condition, he has no living will Reason For Visit: COVID-19 PNEUMONIA; DM TYPE 2; HYPOTHRYOIDISM Physical Exam Vital Signs: Temp Pulse Resp BP Pulse Ox 99.0 F 108 H 23 H 121/66 93 06/26/20 15:55 06/26/20 15:55 06/26/20 16:39 06/26/20 15:55 06/26/20 16:39 Intake & Output 06/25/20 06/26/20 06/27/20 06:59 06:59 06:59 Intake Total 620 1620 200 Output Total 1475 1000 300 Balance -855 620 -100 Weight 72.1 kg 72.9 kg General appearance: PRESENT: other - Patient on BiPAP Respiratory exam: PRESENT: clear to auscultation robin Cardiovascular exam: PRESENT: +S1, +S2 GI/Abdominal exam: PRESENT: soft Neurological exam: PRESENT: alert Results Laboratory Results: 06/23/20 05:02 06/23/20 05:02 06/26/20 14:55 Carbonic Acid 1.28 HCO3/H2CO3 Ratio 21:1 ABG pH 7.42 ABG pCO2 42.4 ABG pO2 43.5 L ABG HCO3 27.1 H ABG O2 Saturation 80.3 L ABG Base Excess 2.3 FiO2 100% 06/21/20 15:16 Blood Blood Culture - Final NO GROWTH IN 5 DAYS 06/21/20 16:30 Blood Blood Culture (PCR) - Final Staphylococcus Species 06/21/20 16:30 Blood Blood Culture - Final Staphylococcus Hominis Impressions: Chest X-Ray 06/21/20 15:03 IMPRESSION: Cannot exclude a limited left lower lobe pneumonia. Assessment & Plan - Diagnosis (1) Acute hypoxemic respiratory failure Is this a current diagnosis for this admission?: Yes Plan: Patient continues to require noninvasive positive pressure ventilation BiPAP (2) Pneumonia due to COVID-19 virus Is this a current diagnosis for this admission?: Yes Plan: Patient has finished recommended intravenous remdesivir, continue IV antibiotic, IV dexamethasone (3) Type 2 diabetes mellitus without complications Qualifiers: Diabetes mellitus long-term insulin use: without long-term use Qualified Code(s): E11.9 - Type 2 diabetes mellitus without complications Is this a current diagnosis for this admission?: Yes - Time Time Spent with patient: 35 or more minutes Level of Care: IMCU Medications reviewed and adjusted accordingly: Yes Anticipated discharge: Home Anticipated DC Timeframe: Other
--- NOTE | 2020-06-26 19:01 | RADIOLOGY REPORT (SQ) ---
EXAM DESCRIPTION: CHEST SINGLE VIEW IMAGES COMPLETED DATE/TIME: 06/26/2020 6:47 pm REASON FOR STUDY: pneumonia COMPARISON: 06/21/2020 EXAM PARAMETERS: NUMBER OF VIEWS: One view. TECHNIQUE: Single frontal radiographic view of the chest acquired. RADIATION DOSE: NA LIMITATIONS: None. FINDINGS: LUNGS AND PLEURA: There are patchy bilateral infiltrates MEDIASTINUM AND HILAR STRUCTURES: No masses. Contour normal. HEART AND VASCULAR STRUCTURES: Heart normal in size. Normal vasculature. BONES: No acute findings. HARDWARE: None in the chest. OTHER: No other significant finding. IMPRESSION: Patchy bilateral infiltrates suggesting bilateral pneumonia. Cannot exclude an atypical infectious/ inflammatory process such as COVID-19 pneumonia. TECHNICAL DOCUMENTATION: JOB ID: [id number] 2010 [employer]- All Rights Reserved Reading location - IP/workstation name: [email or web address]
[2020-06-26] MEDS ORDERED: FUROSEMIDE INJ/PF 40 MG/4 ML SDV IV ONE (19:30)
[2020-06-26] MEDS: MELATONIN 5 MG TABLET PO SCH (22:02)
[2020-06-27] MEDS: RINGERS SOLUTION,LACTATED 1,000 ML IV PRN ×2 (00:44→17:12)
[2020-06-27] MEDS: AZTREONAM 1 GM in DEXTROSE 5%-WATER 50 ML IV SCH ×3 (01:49→17:03)
[2020-06-27] MEDS: ASCORBIC ACID 500 MG TABLET PO SCH ×3 (05:19→17:04)
[2020-06-27] MEDS: INSULIN LISPRO 100 UNIT/ML 3 ML VIAL SUBCUT SCH ×4 (07:54→21:22)
[2020-06-27] MEDS: ENOXAPARIN SODIUM INJ 40 MG/0.4 ML DISP.SYRIN SUBCUT SCH (10:18)
[2020-06-27] MEDS: ZINC SULFATE 220 MG CAPSULE PO SCH (10:18)
[2020-06-27] MEDS: VITAMIN B COMPLEX TABLET PO SCH (10:18)
[2020-06-27] MEDS: CHOLECALCIFEROL (D3) 1,000 UNIT (25 MCG) TABLET PO SCH (10:18)
[2020-06-27] MEDS: DEXAMETHASONE SOD PHOS INJ 10 MG/1 ML VIAL IV SCH (10:18)
[2020-06-27 14:36] LABS: HEMATOCRIT 32.3 % (37.9-51.0); HEMOGLOBIN 10.6 g/dL (13.5-17.0); MEAN CORPUSCULAR HGB CONC 32.6 g/dL (32.0-36.0); MEAN CORPUSCULAR VOLUME 89 fl (80-97); PLATELET COUNT 183 10^3/uL (150-450); RED BLOOD COUNT 3.64 10^6/uL (4.35-5.55); RED CELL DISTRIBUTION WIDTH 12.5 % (11.5-14.0); WHITE BLOOD COUNT 16.8 10^3/uL (4.0-10.5)
--- NOTE | 2020-06-27 14:46 | PDOC PROGRESS REPORT ---
Subjective Date:: 06/27/20 Subjective:: Patient seen by the bedside, he continues to require noninvasive positive pressu re ventilation BiPAP ,the chest x-ray demonstrated diffuse infiltrate bilaterally Reason For Visit: COVID-19 PNEUMONIA; DM TYPE 2; HYPOTHRYOIDISM Physical Exam Vital Signs: Temp Pulse Resp BP Pulse Ox 97.9 F 98 35 H 130/65 H 82 L 06/27/20 11:12 06/27/20 11:12 06/27/20 12:43 06/27/20 11:12 06/27/20 12:43 Intake & Output 06/26/20 06/27/20 06/28/20 06:59 06:59 06:59 Intake Total 1620 1790 260 Output Total 1000 1025 740 Balance 620 765 -480 Weight 72.9 kg 74.2 kg General appearance: PRESENT: other - Patient on BiPAP Respiratory exam: PRESENT: clear to auscultation robin Cardiovascular exam: PRESENT: +S1, +S2 GI/Abdominal exam: PRESENT: soft Neurological exam: PRESENT: alert, CN II-XII grossly intact Results Laboratory Results: 06/26/20 14:55 Carbonic Acid 1.28 HCO3/H2CO3 Ratio 21:1 ABG pH 7.42 ABG pCO2 42.4 ABG pO2 43.5 L ABG HCO3 27.1 H ABG O2 Saturation 80.3 L ABG Base Excess 2.3 FiO2 100% 06/21/20 15:16 Blood Blood Culture - Final NO GROWTH IN 5 DAYS 06/21/20 16:30 Blood Blood Culture (PCR) - Final Staphylococcus Species 06/21/20 16:30 Blood Blood Culture - Final Staphylococcus Hominis Impressions: Chest X-Ray 06/26/20 00:00 IMPRESSION: Patchy bilateral infiltrates suggesting bilateral pneumonia. Cannot exclude an atypical infectious/ inflammatory process such as COVID-19 pneumonia. Assessment & Plan - Diagnosis (1) Acute hypoxemic respiratory failure Is this a current diagnosis for this admission?: Yes Plan: Patient continues to require noninvasive positive pressure ventilation BiPAP (2) Pneumonia due to COVID-19 virus Is this a current diagnosis for this admission?: Yes Plan: Patient has finished recommended intravenous remdesivir, continue IV antibiotic, IV dexamethasone (3) Type 2 diabetes mellitus without complications Qualifiers: Diabetes mellitus jail insulin use: without terminal supervisor use Qualified Code(s): E11.9 - Type 2 diabetes mellitus without complications Is this a current diagnosis for this admission?: Yes - Time Time Spent with patient: 25-34 minutes Level of Care: IMCU Medications reviewed and adjusted accordingly: Yes Anticipated discharge: Home Anticipated DC Timeframe: Other
[2020-06-27 15:00] LABS: ABSOLUTE LYMPHOCYTES# (MANUAL) 0.5 10^3/uL (0.5-4.7); ABSOLUTE MONOCYTES # (MANUAL) 0.2 10^3/uL (0.1-1.4); BAND NEUTROPHILS % (MANUAL) 1 % (3-5); BASOPHILS % (MANUAL) 0 % (0-2); EOSINOPHILS % (MANUAL) 0 % (0-6); LYMPHOCYTES % (MANUAL) 3 % (13-45); MONOCYTES % (MANUAL) 1 % (3-13); SEGMENTED NEUTROPHILS % (MAN) 95 % (42-78); TOTAL CELLS COUNTED 100
[2020-06-27 15:02] LABS: HYPOCHROMASIA SLIGHT; PLATELET COMMENT ADEQUATE; POLYCHROMASIA SLIGHT
[2020-06-27 16:31] LABS: ALBUMIN 2.3 g/dL (3.5-5.0); ALKALINE PHOSPHATASE 99 U/L (38-126); ANION GAP 5 (5-19); ASPARTATE AMINO TRANSFERASE 40 U/L (17-59); BILIRUBIN,DIRECT 0.1 mg/dL (0.0-0.4); BILIRUBIN,TOTAL 0.7 mg/dL (0.2-1.3); BLOOD UREA NITROGEN 30 mg/dL (7-20); CALCIUM 7.9 mg/dL (8.4-10.2); CARBON DIOXIDE 28 mmol/L (22-30); CHLORIDE 101 mmol/L (98-107); GLUCOSE 184 mg/dL (75-110); POTASSIUM 4.3 mmol/L (3.6-5.0); TOTAL PROTEIN 5.2 g/dL (6.3-8.2)
[2020-06-27] MEDS: AZITHROMYCIN 500 MG in DEXTROSE 5%-WATER 250 ML IV SCH (18:26)
[2020-06-27] MEDS: MELATONIN 5 MG TABLET PO SCH (21:22)
[2020-06-28] MEDS: AZTREONAM 1 GM in DEXTROSE 5%-WATER 50 ML IV SCH (03:15)
[2020-06-28] MEDS: ASCORBIC ACID 500 MG TABLET PO SCH ×4 (03:16→17:33)
[2020-06-28 04:55] LABS: HEMATOCRIT 32.1 % (37.9-51.0); HEMOGLOBIN 10.5 g/dL (13.5-17.0); MEAN CORPUSCULAR HEMOGLOBIN 28.9 pg (27.0-33.4); MEAN CORPUSCULAR HGB CONC 32.6 g/dL (32.0-36.0); MEAN CORPUSCULAR VOLUME 89 fl (80-97); PLATELET COUNT 168 10^3/uL (150-450); RED BLOOD COUNT 3.62 10^6/uL (4.35-5.55); RED CELL DISTRIBUTION WIDTH 12.4 % (11.5-14.0); WHITE BLOOD COUNT 16.6 10^3/uL (4.0-10.5)
[2020-06-28 05:18] LABS: ABSOLUTE LYMPHOCYTES# (MANUAL) 0.2 10^3/uL (0.5-4.7); ABSOLUTE MONOCYTES # (MANUAL) 1.5 10^3/uL (0.1-1.4); BASOPHILS % (MANUAL) 0 % (0-2); EOSINOPHILS % (MANUAL) 0 % (0-6); LYMPHOCYTES % (MANUAL) 1 % (13-45); MONOCYTES % (MANUAL) 9 % (3-13); PLATELET COMMENT ADEQUATE; RBC MORPHOLOGY COMMENT NORMO-CYTIC/CHROMIC; SEGMENTED NEUTROPHILS % (MAN) 90 % (42-78); TOTAL CELLS COUNTED 100
[2020-06-28] MEDS ORDERED: ONDANSETRON HCL INJ/PF 4 MG/2 ML SDV ONE (06:53)
[2020-06-28] MEDS: INSULIN LISPRO 100 UNIT/ML 3 ML VIAL SUBCUT SCH (08:00)
[2020-06-28] MEDS: DEXAMETHASONE SOD PHOS INJ 10 MG/1 ML VIAL IV SCH (09:09)
[2020-06-28] MEDS: ENOXAPARIN SODIUM INJ 40 MG/0.4 ML DISP.SYRIN SUBCUT SCH (09:10)
[2020-06-28 10:20] LABS: ARTERIAL BLOOD BASE EXCESS 3.7 mmol/L; ARTERIAL BLOOD H2CO3 1.31 mmol/L (1.05-1.35); ARTERIAL BLOOD HCO3 28.4 mmol/L (20-24); ARTERIAL BLOOD O2 SATURATION 83.6 % (94-98); ARTERIAL BLOOD PCO2 43.5 mmHg (35-45); ARTERIAL BLOOD PH 7.43 (7.35-7.45); ARTERIAL BLOOD PO2 46.5 mmHg (80-100); ARTERIAL BLOOD TOTAL CO2 29.8 mmol/L (23-27)
[2020-06-28 10:22] LABS: ARTERIAL BLOOD FIO2 100%
--- NOTE | 2020-06-28 10:54 | PDOC CRITICAL CARE PROG REPORT ---
General Date:: 06/28/20 Hospital Day:: 7 Resuscitation Status: Full Code Events in the past 12 to 24 Hours:: Increasing hypoxia, possible need for ICU. Review of systems relevant to events:: Pulmonary Reason for ICU Addmission:: Evaluation. - Medications: Medications reviewed and adjusted accordingly: Yes Vasopressors:: None Sedation:: None Physical Exam Vital Signs: Temp Pulse Resp BP Pulse Ox 98.4 F 113 H 29 H 140/73 H 93 06/28/20 07:25 06/28/20 07:25 06/28/20 10:05 06/28/20 07:25 06/28/20 10:22 Intake & Output 06/27/20 06/28/20 06/29/20 06:59 06:59 06:59 Intake Total 1790 2030 Output Total 1025 1925 Balance 765 105 Weight 74.2 kg 70.8 kg Weight/Height Weight 70.8 kg Height 5 ft 5 in General appearance: PRESENT: no acute distress, cooperative Head exam: PRESENT: atraumatic, normocephalic Eye exam: PRESENT: conjunctiva pink, EOMI, PERRLA. ABSENT: scleral icterus Ear exam: PRESENT: normal external ear exam Mouth exam: PRESENT: moist, tongue midline Respiratory exam: PRESENT: accessory muscle use - SCM-mild, clear to auscultation robin, decreased breath sounds. ABSENT: rales, rhonchi, wheezes Cardiovascular exam: PRESENT: RRR, tachycardia. ABSENT: diastolic murmur, rubs, systolic murmur GI/Abdominal exam: PRESENT: normal bowel sounds, soft. ABSENT: distended, guarding, mass, organolmegaly, rebound, tenderness Rectal exam: PRESENT: deferred Extremities exam: PRESENT: full ROM. ABSENT: calf tenderness, clubbing, pedal edema Musculoskeletal exam: PRESENT: normal inspection Neurological exam: PRESENT: alert, awake, oriented to person, oriented to place, oriented to time, oriented to situation, CN II-XII grossly intact. ABSENT: motor sensory deficit Psychiatric exam: PRESENT: anxious Skin exam: PRESENT: dry, intact, warm. ABSENT: cyanosis, rash Tubes/Lines: PRESENT: Other - Bipap. Laboratory/Radiographs Laboratory Results: 06/28/20 03:54 06/27/20 15:53 06/27/20 06/27/20 06/27/20 14:12 14:12 15:53 WBC 16.8 H RBC 3.64 L Hgb 10.6 L Hct 32.3 L MCV 89 MCH 29.0 MCHC 32.6 RDW 12.5 Plt Count 183 Seg Neutrophils % Not Reportable Carbonic Acid HCO3/H2CO3 Ratio ABG pH ABG pCO2 ABG pO2 ABG HCO3 ABG O2 Saturation ABG Base Excess FiO2 Sodium Cancelled 133.7 L Potassium Cancelled 4.3 Chloride Cancelled 101 Carbon Dioxide Cancelled 28 Anion Gap Cancelled 5 BUN Cancelled 30 H Creatinine Cancelled 0.97 Est GFR ( Amer) Cancelled > 60 Est GFR (Non-Af Amer) Cancelled Glucose Cancelled 184 H Calcium Cancelled 7.9 L Total Bilirubin Cancelled 0.7 AST Cancelled 40 Alkaline Phosphatase Cancelled 99 Total Protein Cancelled 5.2 L Albumin Cancelled 2.3 L 06/28/20 06/28/20 03:54 10:04 WBC 16.6 H RBC 3.62 L Hgb 10.5 L Hct 32.1 L MCV 89 MCH 28.9 MCHC 32.6 RDW 12.4 Plt Count 168 Seg Neutrophils % Not Reportable Carbonic Acid 1.31 HCO3/H2CO3 Ratio 21:1 ABG pH 7.43 ABG pCO2 43.5 ABG pO2 46.5 L ABG HCO3 28.4 H ABG O2 Saturation 83.6 L ABG Base Excess 3.7 FiO2 100% Sodium Potassium Chloride Carbon Dioxide Anion Gap BUN Creatinine Est GFR ( Amer) Est GFR (Non-Af Amer) Glucose Calcium Total Bilirubin AST Alkaline Phosphatase Total Protein Albumin Impressions: Chest X-Ray 06/26/20 00:00 IMPRESSION: Patchy bilateral infiltrates suggesting bilateral pneumonia. Cannot exclude an atypical infectious/ inflammatory process such as COVID-19 pneumonia. EKG: ST RBBB All labs, radiographs, diagnostic studies and EKGs were personally reviewed: Yes In addition, reports of radiographic and diagnostic studies were read: Yes Assessment and Plan - Diagnosis (1) Pneumonia due to COVID-19 virus Is this a current diagnosis for this admission?: Yes Plan: This man is in a dangerous age group for Covid at 85. He complains of more SOB with exhalation. I time shortened and e-time lengthened for comfort. He is mildly hypoxic with an O2 saturation 85-90%. According to latest standards for Covid intubation, hypoxia in and of itself is neither a reason for ICU transfer or intubation. Hypercarbia and obtundation are however. These are not currently present. Not indicated right now for intubation. Hypercarbia and obtundation are indications for impending respiratory failure and at that point intubation is helpful in preserving life at the moment. No clear indications it improves mortality. (2) Diabetes mellitus type 2 in nonobese Is this a current diagnosis for this admission?: Yes Plan: Another risk factor for Covid mortality. Plan Summary: Keep on IMC unless obtunded or hypercarbic. Also he will need nutrition as he has not eaten in a week and may benefit from a PICC and TPN as I do not see NG feeding being a good option as he will need to be off the bipap to place an NG and will give him a leak. Critical Time Critical Time (minutes): 40 Level of Care: IMCU Anticipated discharge: SNF Anticipated DC Timeframe: Other -: 1. The care of a critical patient is a dynamic process. This note is a area representative synopsis but static in nature. The timeframe for treatments given in order is not necessarily the actual time these treatments may have been done. 2. This patient requires critical care secondary to ongoing requirements for t herapy not offered or safe outside the critical care environment. Transfer to a lower level of care will result in altered life or limb morbidity and mortality. 3. Multidisciplinary rounds completed. 4. ABCDE bundle addressed.
[2020-06-28] MEDS: CHOLECALCIFEROL (D3) 1,000 UNIT (25 MCG) TABLET PO SCH (12:15)
[2020-06-28] MEDS: ZINC SULFATE 220 MG CAPSULE PO SCH (12:15)
[2020-06-28] MEDS: VITAMIN B COMPLEX TABLET PO SCH (12:15)
[2020-06-28] MEDS: RINGERS SOLUTION,LACTATED 1,000 ML IV PRN (12:16)
[2020-06-28] MEDS ORDERED: DEXTROSE 10%-WATER 1,000 ML IV PRN (13:18)
[2020-06-28] MEDS ORDERED: GLUCAGON,HUMAN RECOMB 1 MG INJ IM PRN (13:18)
[2020-06-28] MEDS ORDERED: DEXTROSE 40% GEL 15 GM TUBE PO PRN ×2 (13:18)
[2020-06-28] MEDS ORDERED: DEXTROSE 50%-WATER 25 GM/50 ML DISP.SYRIN IV PRN ×2 (13:18)
[2020-06-28] MEDS: AZTREONAM 1 GM in DEXTROSE 5%-WATER 100 ML IV SCH ×2 (14:40→21:25)
[2020-06-28] MEDS: INSULIN REG, HUMAN 100 UNIT/ML 3 ML VIAL (PYX) SUBCUT SCH ×2 (17:28→17:33)
[2020-06-28 17:31] LABS: HEMATOCRIT 32.7 % (37.9-51.0); HEMOGLOBIN 10.7 g/dL (13.5-17.0); MEAN CORPUSCULAR HEMOGLOBIN 29.1 pg (27.0-33.4); MEAN CORPUSCULAR HGB CONC 32.6 g/dL (32.0-36.0); MEAN CORPUSCULAR VOLUME 89 fl (80-97); PLATELET COUNT 142 10^3/uL (150-450); RED BLOOD COUNT 3.67 10^6/uL (4.35-5.55); RED CELL DISTRIBUTION WIDTH 12.8 % (11.5-14.0); WHITE BLOOD COUNT 18.1 10^3/uL (4.0-10.5)
[2020-06-28] MEDS: AZITHROMYCIN 500 MG in DEXTROSE 5%-WATER 250 ML IV SCH (17:34)
--- NOTE | 2020-06-28 20:07 | PDOC PROGRESS REPORT ---
Subjective Date:: 06/28/20 Subjective:: Patient's condition remains very precarious, he continues to require noninvasive positive pressure ventilation the arterial blood gas on FiO2 100%, pH 7.40, PO2 46.5, bicarbonate 28.4, PCO2 43.5. Patient is alert still responsive, I consulted asset administrator for ICU transfer, because patient is alert, not obtunded and because there is no hypercapnia trach intubation will not be beneficial at this point. Patient has not been able to eat ,we intend to initiate TPN once a PICC line is placed because NG tube will not be a good option because it cannot come off BiPAP at this time Reason For Visit: COVID-19 PNEUMONIA; DM TYPE 2; HYPOTHRYOIDISM Physical Exam Vital Signs: Temp Pulse Resp BP Pulse Ox 98.6 F 101 H 24 H 144/76 H 84 L 06/28/20 16:00 06/28/20 19:00 06/28/20 19:27 06/28/20 16:00 06/28/20 19:27 Intake & Output 06/27/20 06/28/20 06/29/20 06:59 06:59 06:59 Intake Total 1790 2030 1250 Output Total 1025 1925 Balance 715 566 0432 Weight 74.2 kg 70.8 kg General appearance: PRESENT: other - Patient is alert on BiPAP Respiratory exam: PRESENT: decreased breath sounds Cardiovascular exam: PRESENT: +S1, +S2 GI/Abdominal exam: PRESENT: soft Neurological exam: PRESENT: alert Results Laboratory Results: 06/28/20 17:12 06/27/20 15:53 06/28/20 06/28/20 06/28/20 03:54 10:04 17:10 WBC 16.6 H RBC 3.62 L Hgb 10.5 L Hct 32.1 L MCV 89 MCH 28.9 MCHC 32.6 RDW 12.4 Plt Count 168 Seg Neutrophils % Not Reportable Carbonic Acid 1.31 HCO3/H2CO3 Ratio 21:1 ABG pH 7.43 ABG pCO2 43.5 ABG pO2 46.5 L ABG HCO3 28.4 H ABG O2 Saturation 83.6 L ABG Base Excess 3.7 FiO2 100% Magnesium Triglycerides 96 06/28/20 06/28/20 17:10 17:12 WBC 18.1 H RBC 3.67 L Hgb 10.7 L Hct 32.7 L MCV 89 MCH 29.1 MCHC 32.6 RDW 12.8 Plt Count 142 L Seg Neutrophils % Carbonic Acid HCO3/H2CO3 Ratio ABG pH ABG pCO2 ABG pO2 ABG HCO3 ABG O2 Saturation ABG Base Excess FiO2 Magnesium 2.4 H Triglycerides Impressions: Chest X-Ray 06/26/20 00:00 IMPRESSION: Patchy bilateral infiltrates suggesting bilateral pneumonia. Cannot exclude an atypical infectious/ inflammatory process such as COVID-19 pneumonia. Assessment & Plan - Diagnosis (1) Acute hypoxemic respiratory failure Is this a current diagnosis for this admission?: Yes Plan: He has profound hypoxemia, the PO2, 46.5 on FiO2 100%, patient requires noninvasive positive pressure ventilation BiPAP (2) Pneumonia due to COVID-19 virus Is this a current diagnosis for this admission?: Yes Plan: Patient still on IV dexamethasone, aztreonam, he has finished the 5-day course of remdesivir (3) Type 2 diabetes mellitus without complications Qualifiers: Diabetes mellitus terminal make up operator insulin use: without terminal make up operator use Qualified Code(s): E11.9 - Type 2 diabetes mellitus without complications Is this a current diagnosis for this admission?: Yes - Time Time Spent with patient: 35 or more minutes Level of Care: IMCU Medications reviewed and adjusted accordingly: Yes Anticipated discharge: Home Anticipated DC Timeframe: Other
[2020-06-28] MEDS: MELATONIN 5 MG TABLET PO SCH (21:25)
--- NOTE | 2020-06-28 23:39 | RADIOLOGY REPORT (SQ) ---
EXAM DESCRIPTION: X-RAY CHEST- One View CLINICAL HISTORY: Clinical history of pneumonia. COMPARISON: June 26, 2020. TECHNIQUE: Single view of the chest. FINDINGS: There are overlying EKG leads and other objects. There is redemonstration of multifocal airspace disease bilaterally, similar in appearance to prior exam. The cardiomediastinal silhouette is stable in appearance. Osseous structures are unchanged. IMPRESSION: Redemonstration of multifocal airspace disease, similar in appearance to prior exam. Findings are nonspecific and differential diagnosis includes infectious and inflammatory causes.
[2020-06-29] MEDS: INSULIN REG, HUMAN 100 UNIT/ML 3 ML VIAL (PYX) SUBCUT SCH ×4 (01:07→19:23)
[2020-06-29] MEDS: ASCORBIC ACID 500 MG TABLET PO SCH ×5 (01:10→19:01)
[2020-06-29] MEDS: RINGERS SOLUTION,LACTATED 1,000 ML IV PRN ×2 (04:10→10:19)
[2020-06-29 08:17] LABS: INTERNATIONAL RATION (INR) 1.52; PROTHROMBIN TIME 18.4 SEC (11.4-15.4)
[2020-06-29 08:18] LABS: PARTIAL THROMBOPLASTIN TIME 30.9 SEC (23.5-35.8)
[2020-06-29 08:30] LABS: ALBUMIN 2.5 g/dL (3.5-5.0); ALKALINE PHOSPHATASE 124 U/L (38-126); ANION GAP 5 (5-19); ASPARTATE AMINO TRANSFERASE 38 U/L (17-59); BILIRUBIN,DIRECT 0.2 mg/dL (0.0-0.4); BILIRUBIN,TOTAL 0.8 mg/dL (0.2-1.3); BLOOD UREA NITROGEN 33 mg/dL (7-20); CALCIUM 8.1 mg/dL (8.4-10.2); CARBON DIOXIDE 30 mmol/L (22-30); CHLORIDE 99 mmol/L (98-107); GLUCOSE 135 mg/dL (75-110); POTASSIUM 4.6 mmol/L (3.6-5.0); TOTAL PROTEIN 5.7 g/dL (6.3-8.2)
[2020-06-29 08:36] LABS: PREALBUMIN 9.4 mg/dL (17.6-36.0)
[2020-06-29] MEDS ORDERED: METHYLPREDNISOLONE INJ 125 MG/2 ML SDV ONE (08:59)
[2020-06-29] MEDS ORDERED: METHYLPREDNISOLONE INJ 125 MG/2 ML SDV IV ONE (09:30)
[2020-06-29] MEDS ORDERED: IVERMECTIN 3 MG TABLET PO ONE (09:30)
[2020-06-29 09:35] LABS: ARTERIAL BLOOD BASE EXCESS 3.1 mmol/L; ARTERIAL BLOOD FIO2 100%; ARTERIAL BLOOD H2CO3 1.44 mmol/L (1.05-1.35); ARTERIAL BLOOD HCO3 28.7 mmol/L (20-24); ARTERIAL BLOOD PH 7.39 (7.35-7.45); ARTERIAL BLOOD PO2 41.3 mmHg (80-100); ARTERIAL BLOOD TOTAL CO2 30.1 mmol/L (23-27)
[2020-06-29] MEDS: ENOXAPARIN SODIUM INJ 40 MG/0.4 ML DISP.SYRIN SUBCUT SCH (12:42)
[2020-06-29] MEDS: ZINC SULFATE 220 MG CAPSULE PO SCH (12:43)
[2020-06-29] MEDS: DEXAMETHASONE SOD PHOS INJ 10 MG/1 ML VIAL IV SCH (12:43)
[2020-06-29] MEDS: VITAMIN B COMPLEX TABLET PO SCH (12:43)
[2020-06-29] MEDS: CHOLECALCIFEROL (D3) 1,000 UNIT (25 MCG) TABLET PO SCH (12:43)
--- NOTE | 2020-06-29 12:47 | RADIOLOGY REPORT (SQ) ---
EXAM DESCRIPTION: FLUORO/CV PLACEMENT; CHEST SINGLE VIEW; U/S GUIDE FOR VASCULAR ACCESS; PICC INSERT ION IMAGES COMPLETED DATE/TIME: 06/29/2020 12:32 pm; 06/29/2020 12:13 pm REASON FOR STUDY: PICC; PICC Placement; for IV access COMPARISON: None. FLUOROSCOPY TIME: 0 1 images saved to PACS. TECHNIQUE: Fluoroscopic and ultrasound guided PICC placement. LIMITATIONS: None. PROCEDURE: After written consent and assessment were obtained, the patient was brought into the fluo roscopy room and placed supine on the table. Ultrasound evaluation of potential access sites were per formed. After successfully identifying a patent right basilic vein, the right arm was prepped and cecilio ped in a sterile fashion along with the ultrasound probe. The entry site was anesthetized with 1% lid ocaine. A 21 gauge 7 cm needle was advanced through the skin and into the basilic vein under live ult rasound guidance. An ultrasound image was saved to PACS confirming access site. A .018 guide wire w as then inserted through the needle and into the venous system. The needle was then removed and an 11 blade scalpel was used to make a 1cm skin incision. A 5 fr peel-away sheath was advanced over the w garth and into the venous system. A measurement was then made using the existing wire and live fluorosc opic guidance. The wire was then removed and trimmed. The PICC was advanced through the peel-away she ath and into the venous system. The peel-away sheath was removed and the catheter was adhered to the patients arm with a stat lock. The catheter was then aspirated and flushed and a sterile bandage was placed over the access site. A fluoroscopic spot image was saved to PACS confirming the catheter tip within the superior vena cava. IMPRESSION: SUCCESSFUL PLACEMENT OF A 5 FR DUAL LUMEN 43 CM PICC IN THE RIGHT BASILIC VEIN. COMMENT: Patient medication list reviewed: Yes- Quality ID# [id number]:Eligible professional attests to doc umenting in the medical record they obtained, updated, or reviewed the patient's current medications. . Quality ID 145: Final reports for procedures using fluoroscopy that document radiation exposure jose shashi, or exposure time and number of fluorographic images (if radiation exposure indices are not avail able) Quality ID #76: The patient was prepped and draped using maximum sterile barrier technique including cap, mask, sterile gown, sterile gloves, a large sterile sheet, hand hygiene, and 2% Chlorhexidine fo r cutaneous antisepsis. When ultrasound is used, sterile ultrasound techniques are followed requiring sterile gel and sterile probes. TECHNICAL DOCUMENTATION: JOB ID: [id number] 2010 [employer]- All Rights Reserved rev-11/12 Reading location - IP/workstation name: [email or web address]
--- NOTE | 2020-06-29 12:58 | CRITICAL CARE ADMISSION REPORT ---
HPI Date:: 06/29/20 Time:: 10:00 Reason for ICU Reason:: High risk of intubation Admission Date/Time & PCP: Admission Date/Time: 06/21/20 18:17 Primary Care Provider: ZENAIDA JONES MD HPI: JACI PALOMO is a 85 year old male patient of Dr. Jones who presented to the ED with recent diagnosis of positive status for COVID-19 infection and worsening shortness of breath, particularly with exertion. Patient reported associated minimally productive cough, loss of smell and taste over last one week. He claimed associated worsening generalized weakness. He admitted exposure to his granddaughter was was recently diagnosed with faulkner virus infection. He denied any diarrhea or abdominal pain. No chest pain or palpitation. His initial ED evaluation was significant for elevation of inflammatory indices and D-Dimer, electrolytes derangement, and chest X ray suggestive of left lower lobe airspace disease process. He was advised hospitalization for further evaluation and management. His morbidities are as listed below. 06/29/20: Asked to see patient for worsening hypoxia. Pt seen yesterday and not as hypoxic. Awake and talking although SOB. Same for today but with O2 saturations in 70s. He is a high risk for intubation, however he has never been tried in the proned position to try and remove some WOB and increase oxygenation. There sre some studies suggesting this be tried before intubation in spontaneously breathing patients. History obtained from:: Patient, staff design engineer and Dr Fowler. - Diagnosis/Plan (1) Pneumonia due to COVID-19 virus Is this a current diagnosis for this admission?: Yes Plan: Try self proning before intubation. With Dr. Mustafa not in house and patient already an intubation risk, it is likely too dangerous to do this on the 3rd floor. (2) Diabetes mellitus type 2 in nonobese Is this a current diagnosis for this admission?: Yes Plan: Controlled (3) Nutrition deficiency due to insufficient food Is this a current diagnosis for this admission?: Yes Plan: A PICC line is placed and we will start TPN. Plan Summary: Plan to attempt proning and try to improve saturations before intubating him. Past Medical History Cardiac Medical History: Denies: Myocardial Infarction, Hypertension Pulmonary Medical History: Denies: Asthma Neurological Medical History: Denies: Seizures Endocrine Medical History: Reports: Diabetes Mellitus Type 2, Hypothyroidism GI Medical History: Denies: Hepatitis, Hiatal Hernia Musculoskeltal Medical History: Reports: Arthritis Psychiatric Medical History: Denies: Depression Hematology: Denies: Anemia, Sickle Cell Disease Past Surgical History Past Surgical History: Denies: Pacemaker Social/Family History - Social History Smoking Status: Former Smoker Last Time Smoked: 1976 Frequency of Alcohol Use: Occasional Hx Recreational Drug Use: No Drugs: None Hx Prescription Drug Abuse: No - Medication/Allergies Home Medications: Benzonatate [Tessalon Perles 100 mg Capsule] 100 mg PO Q8HP PRN 06/23/20 Glipizide [Glucotrol] 5 mg PO DAILY 06/23/20 Levothyroxine Sodium 50 mcg PO DAILY 06/23/20 Methylprednisolone [Methylpred Dp] 4 mg PO ASDIR 06/23/20 Allergies/Adverse Reactions: Penicillins Allergy (Intermediate, Verified 06/24/17 14:33) Hives Review of Systems Constitutional: ABSENT: chills, fever(s), headache(s), weight gain, weight loss Respiratory: PRESENT: dyspnea Physical Exam Vital Signs: Temp Pulse Resp BP Pulse Ox 98.5 F 105 H 30 H 141/73 H 88 L 06/29/20 10:00 06/29/20 07:00 06/29/20 12:30 06/29/20 11:28 06/29/20 12:30 Intake & Output 06/28/20 06/29/20 06/30/20 06:59 06:59 06:59 Intake Total 2030 2700 431 Output Total 1925 1050 200 Balance 105 1650 231 Weight 70.8 kg 70.1 kg Weight/Height Weight 70.1 kg Height 5 ft 5 in General appearance: PRESENT: mild distress Head exam: PRESENT: atraumatic, normocephalic Eye exam: PRESENT: conjunctiva pink, EOMI, PERRLA. ABSENT: scleral icterus Ear exam: PRESENT: normal external ear exam Mouth exam: PRESENT: moist, tongue midline Respiratory exam: PRESENT: clear to auscultation robin, decreased breath sounds. ABSENT: rales, rhonchi, wheezes Cardiovascular exam: PRESENT: RRR, tachycardia. ABSENT: diastolic murmur, rubs, systolic murmur GI/Abdominal exam: PRESENT: normal bowel sounds, soft. ABSENT: distended, guarding, mass, organolmegaly, rebound, tenderness Rectal exam: PRESENT: deferred Gentrourinary exam: PRESENT: indwelling catheter Extremities exam: PRESENT: full ROM. ABSENT: calf tenderness, clubbing, pedal edema Musculoskeletal exam: PRESENT: normal inspection Neurological exam: PRESENT: alert, awake, oriented to person, oriented to place, oriented to time, oriented to situation, CN II-XII grossly intact. ABSENT: motor sensory deficit Psychiatric exam: PRESENT: appropriate affect, normal mood. ABSENT: homicidal ideation, suicidal ideation Skin exam: PRESENT: dry, intact, warm. ABSENT: cyanosis, rash Tubes/Lines: PRESENT: Central Line, Other - Bipap Laboratory/Radiographs Laboratory Results: 06/28/20 17:12 06/29/20 07:47 06/28/20 06/28/20 06/28/20 17:10 17:10 17:12 WBC 18.1 H RBC 3.67 L Hgb 10.7 L Hct 32.7 L MCV 89 MCH 29.1 MCHC 32.6 RDW 12.8 Plt Count 142 L Carbonic Acid HCO3/H2CO3 Ratio ABG pH ABG pCO2 ABG pO2 ABG HCO3 ABG O2 Saturation ABG Base Excess FiO2 Sodium Potassium Chloride Carbon Dioxide Anion Gap BUN Creatinine Est GFR ( Amer) Glucose Calcium Phosphorus Magnesium 2.4 H Total Bilirubin AST Alkaline Phosphatase Total Protein Albumin Prealbumin Triglycerides 96 06/29/20 06/29/20 07:47 09:00 WBC RBC Hgb Hct MCV MCH MCHC RDW Plt Count Carbonic Acid 1.44 H HCO3/H2CO3 Ratio 19:1 ABG pH 7.39 ABG pCO2 48.0 H ABG pO2 41.3 L ABG HCO3 28.7 H ABG O2 Saturation 76.0 L ABG Base Excess 3.1 FiO2 100% Sodium 133.9 L Potassium 4.6 Chloride 99 Carbon Dioxide 30 Anion Gap 5 BUN 33 H Creatinine 0.88 Est GFR ( Amer) > 60 Glucose 135 H Calcium 8.1 L Phosphorus 3.0 Magnesium Total Bilirubin 0.8 AST 38 Alkaline Phosphatase 124 Total Protein 5.7 L Albumin 2.5 L Prealbumin 9.4 L Triglycerides Impressions: Guidance Fluoroscopy 06/29/20 00:00 IMPRESSION: SUCCESSFUL PLACEMENT OF A 5 FR DUAL LUMEN 43 CM PICC IN THE RIGHT BASILIC VEIN. Interventional Vascular Procedure 06/29/20 00:00 IMPRESSION: SUCCESSFUL PLACEMENT OF A 5 FR DUAL LUMEN 43 CM PICC IN THE RIGHT BASILIC VEIN. PICC Line Insertion 06/29/20 00:00 IMPRESSION: SUCCESSFUL PLACEMENT OF A 5 FR DUAL LUMEN 43 CM PICC IN THE RIGHT BASILIC VEIN. Chest X-Ray 06/29/20 11:50 IMPRESSION: SUCCESSFUL PLACEMENT OF A 5 FR DUAL LUMEN 43 CM PICC IN THE RIGHT BASILIC VEIN. All labs, radiographs, diagnostic studies and EKGs were personally reviewed: Yes In addition, reports of radiographic and diagnostic studies were read: Yes Critical Time Critical Time (minutes): 40 -: The care of a critically ill patient is dynamic. This note represents a static moment in the admission process. Orders and treatments may be given simultaneously and urgently, and time is not pharmaceutical service representative of the treatment process. This patient requires Critical Care secondary to life threatening organ or limb dysfunction. Without Critical Care services, the patient is at risk for increased mortality and morbidity.
[2020-06-29] MEDS: FENTANYL CITRATE INJ/PF 100 MCG/2 ML AMPUL IV PRN ×2 (15:46→22:33)
[2020-06-29] MEDS: AMINO ACIDS 5 %/DEXTROSE 20 % 1,000 ML IV PRN (17:28)
[2020-06-29] MEDS ORDERED: DOCUSATE SODIUM 100 MG CAPSULE PO ONE (23:00)
[2020-06-29] MEDS ORDERED: RINGERS SOLUTION,LACTATED 1,000 ML IV PRN (23:27)
[2020-06-29] MEDS ORDERED: DOCUSATE SODIUM 100 MG CAPSULE PO SCH (23:45)
[2020-06-29] MEDS ORDERED: SIMETHICONE 80 MG TAB.CHEW PO PRN (23:46)
[2020-06-29] MEDS: AZTREONAM 1 GM in DEXTROSE 5%-WATER 50 ML IV SCH (23:49)
[2020-06-29] MEDS: INSULIN LISPRO 100 UNIT/ML 3 ML VIAL SUBCUT SCH (23:49)
[2020-06-30 00:49] LABS: HEMATOCRIT 35.2 % (37.9-51.0); HEMOGLOBIN 11.1 g/dL (13.5-17.0); MEAN CORPUSCULAR HEMOGLOBIN 28.6 pg (27.0-33.4); MEAN CORPUSCULAR HGB CONC 31.5 g/dL (32.0-36.0); MEAN CORPUSCULAR VOLUME 91 fl (80-97); PLATELET COUNT 118 10^3/uL (150-450); RED BLOOD COUNT 3.88 10^6/uL (4.35-5.55); WHITE BLOOD COUNT 16.6 10^3/uL (4.0-10.5)
[2020-06-30 01:00] LABS: ARTERIAL BLOOD BASE EXCESS 0.6 mmol/L; ARTERIAL BLOOD H2CO3 1.57 mmol/L (1.05-1.35); ARTERIAL BLOOD HCO3 27.3 mmol/L (20-24); ARTERIAL BLOOD O2 SATURATION 58.8 % (94-98); ARTERIAL BLOOD PCO2 52.2 mmHg (35-45); ARTERIAL BLOOD PH 7.34 (7.35-7.45); ARTERIAL BLOOD TOTAL CO2 28.9 mmol/L (23-27)
[2020-06-30 01:06] LABS: ARTERIAL BLOOD FIO2 100%
[2020-06-30 01:13] LABS: ALBUMIN 2.3 g/dL (3.5-5.0); ALKALINE PHOSPHATASE 125 U/L (38-126); ANION GAP 5 (5-19); ASPARTATE AMINO TRANSFERASE 33 U/L (17-59); BILIRUBIN,DIRECT 0.3 mg/dL (0.0-0.4); BILIRUBIN,TOTAL 0.7 mg/dL (0.2-1.3); BLOOD UREA NITROGEN 37 mg/dL (7-20); CARBON DIOXIDE 32 mmol/L (22-30); CHLORIDE 100 mmol/L (98-107); PHOSPHORUS 3.6 mg/dL (2.5-4.5); POTASSIUM 5.1 mmol/L (3.6-5.0); TOTAL PROTEIN 5.2 g/dL (6.3-8.2)
[2020-06-30 01:23] LABS: ABSOLUTE LYMPHOCYTES# (MANUAL) 0.7 10^3/uL (0.5-4.7); ABSOLUTE MONOCYTES # (MANUAL) 0.8 10^3/uL (0.1-1.4); BASOPHILS % (MANUAL) 0 % (0-2); EOSINOPHILS % (MANUAL) 0 % (0-6); LYMPHOCYTES % (MANUAL) 4 % (13-45); MONOCYTES % (MANUAL) 5 % (3-13); PLATELET COMMENT DECREASED; SEGMENTED NEUTROPHILS % (MAN) 91 % (42-78); TOTAL CELLS COUNTED 100
[2020-06-30 01:25] LABS: BURR CELLS SLIGHT; SCHISTOCYTES SLIGHT
[2020-06-30 01:26] LABS: C-REACTIVE PROTEIN 181.6 mg/L (<10.0); TEAR DROP CELLS SLIGHT
[2020-06-30 01:27] LABS: GLUCOSE 417 mg/dL (75-110)
[2020-06-30] MEDS ORDERED: INSULIN LISPRO 100 UNIT/ML 3 ML VIAL SUBCUT ONE (03:38)
[2020-06-30] MEDS ORDERED: INSULIN REG, HUMAN 100 UNIT/ML 3 ML VIAL (PYX) ONE ×2 (04:04→16:14)
[2020-06-30] MEDS ORDERED: INSULIN LISPRO 100 UNIT/ML 3 ML VIAL ONE (04:22)
[2020-06-30] MEDS: FENTANYL CITRATE INJ/PF 100 MCG/2 ML AMPUL IV PRN ×2 (04:38→08:56)
[2020-06-30] MEDS: ASCORBIC ACID 500 MG TABLET PO SCH ×2 (04:39→05:33)
[2020-06-30] MEDS: MELATONIN 5 MG TABLET PO SCH (04:40)
[2020-06-30 05:07] LABS: INTERNATIONAL RATION (INR) 1.53; PROTHROMBIN TIME 18.6 SEC (11.4-15.4)
[2020-06-30 05:08] LABS: PARTIAL THROMBOPLASTIN TIME 33.2 SEC (23.5-35.8)
[2020-06-30] MEDS: INSULIN REG, HUMAN 100 UNIT/ML 3 ML VIAL (PYX) SUBCUT SCH ×4 (05:19→14:56)
[2020-06-30 05:43] LABS: D-DIMER > 20.00 ug/mL (0.00-0.50)
[2020-06-30] MEDS ORDERED: HEPARIN SOD (PORCINE) 1,000 UNIT/ML 10 ML VIAL IV ONE (05:45)
[2020-06-30] MEDS ORDERED: HEPARIN SODIUM,PORCINE/D5W 25,000 UNIT/250 ML RTUINJ IV ONE (07:47)
--- NOTE | 2020-06-30 07:52 | Progress Note ---
Provider Note Provider Note: ICU Interim Evaluation Note: Out of concern for pulmonary embolism or microthromboembolism contributing to ongoing hypoxemia, both of which are known to be common sequelae from COVID-19, I ordered a repeat D-dimer test given that the patient is too unstable to go for computed tomography. The result returned extremely high at >20 ug/mL (which is the lab cut off value). Assessment: High probability of pulmonary embolism vs microthromboembolism due to COVID-19 infection Acute respiratory failure with hypoxia Refractory hypoxemia on non-invasive ventilation ARDS Thrombocytopenia of unclear etiology, though could be drug-related For now, Mr Mckeon remains classified as a "happy hypoxic" given that he is orient ed x4, with a normal troponin as well as hepatic and renal function by serum biomarkers. His ScVO2 is 59% (labeled as ABG in the lab but is actually a VBG) indicating his tissues are extracting slightly more oxygen than in a normal physiologic state of health. Plan: -Start a heparin infusion and follow thrombocytopenia vigilantly. My hope is that the heparin infusion may assist with oxygenation and be able to keep Mr Mckeon from invasive mechanical ventilation longer. He is at extremely high risk of mortality based on his COVID serum biomarkers and given his age. -CBC in AM -D/C Lovenox
[2020-06-30] MEDS: HEPARIN SODIUM,PORCINE/D5W 25,000 UNIT/250 ML RTUINJ IV PRN (08:39)
[2020-06-30] MEDS: CHOLECALCIFEROL (D3) 1,000 UNIT (25 MCG) TABLET PO SCH ×2 (09:09→11:55)
[2020-06-30] MEDS: ZINC SULFATE 220 MG CAPSULE PO SCH ×2 (09:09→11:55)
[2020-06-30] MEDS: VITAMIN B COMPLEX TABLET PO SCH ×2 (09:09→12:31)
[2020-06-30] MEDS: DOCUSATE SODIUM 100 MG CAPSULE PO SCH ×2 (09:09→11:55)
[2020-06-30 09:40] LABS: APPEARANCE,URINE CLEAR; BILIRUBIN,URINE NEGATIVE (NEGATIVE); COLOR,URINE YELLOW; GLUCOSE, URINE >=500 mg/dL (NEGATIVE); KETONES,URINE NEGATIVE (NEGATIVE); LEUKOCYTE ESTERASE,URINE NEGATIVE (NEGATIVE); NITRITE,URINE NEGATIVE (NEGATIVE); PROTEIN,URINE 30 mg/dL (NEGATIVE); URINE SPECIFIC GRAVITY 1.023; UROBILINOGEN,URINE NEGATIVE mg/dL (<2.0)
[2020-06-30] MEDS: DEXAMETHASONE SOD PHOS INJ 10 MG/1 ML VIAL IV SCH (09:46)
[2020-06-30] MEDS ORDERED: DEXMEDETOMIDINE IN 0.9 % NACL 400 MCG/100 ML RTUPB IV ONE (09:47)
[2020-06-30] MEDS: ETOMIDATE INJ/PF 20 MG/10 ML SDV IV ONE ×2 (09:51→15:07)
[2020-06-30] MEDS: DEXMEDETOMIDINE IN 0.9 % NACL 400 MCG/100 ML RTUPB IV PRN ×2 (10:10→15:05)
[2020-06-30] MEDS ORDERED: PHARMACY COMMUNICATION ORDER MC NR (10:15)
--- NOTE | 2020-06-30 10:19 | PDOC CRITICAL CARE PROG REPORT ---
General Date:: 06/30/20 ICU Day:: 2 Ventilator Day:: 1 Hospital Day:: 9 Resuscitation Status: Full Code Events in the past 12 to 24 Hours:: Increasing hypoxia, possible need for ICU. 06/30/20: Intubated for increased WOB. Lower O2 saturations and decreasing mental status. Review of systems relevant to events:: Pulmonary Reason for ICU Addmission:: Intubated for Covid PNA. - Medications: Medications reviewed and adjusted accordingly: Yes Vasopressors:: None Sedation:: Precedex. Physical Exam Vital Signs: Temp Pulse Resp BP Pulse Ox 101.1 F H 157 H 19 168/96 H 71 L 06/30/20 08:00 06/30/20 08:00 06/30/20 09:04 06/30/20 08:42 06/30/20 09:04 Intake & Output 06/29/20 06/30/20 07/01/20 06:59 06:59 06:59 Intake Total 2700 1413 Output Total 1050 1845 240 Balance 1650 -432 -240 Weight 70.1 kg 72.3 kg Weight/Height Weight 72.3 kg Height 5 ft 5 in General appearance: PRESENT: mild distress, thin Head exam: PRESENT: atraumatic, normocephalic Eye exam: PRESENT: conjunctiva pink, EOMI, PERRLA. ABSENT: scleral icterus Ear exam: PRESENT: normal external ear exam Mouth exam: PRESENT: moist, tongue midline Neck exam: ABSENT: carotid bruit, JVD, lymphadenopathy, thyromegaly Respiratory exam: PRESENT: clear to auscultation robin, decreased breath sounds, retraction, symmetrical, tachypnea. ABSENT: rales, rhonchi, wheezes Cardiovascular exam: PRESENT: RRR. ABSENT: diastolic murmur, rubs, systolic murmur GI/Abdominal exam: PRESENT: normal bowel sounds, soft. ABSENT: distended, guarding, mass, organolmegaly, rebound, tenderness Rectal exam: PRESENT: deferred Gentrourinary exam: PRESENT: indwelling catheter Extremities exam: PRESENT: full ROM. ABSENT: calf tenderness, clubbing, pedal edema Musculoskeletal exam: PRESENT: normal inspection Neurological exam: PRESENT: alert, altered, awake, CN II-XII grossly intact, other - Although awake he has a far away look in his eyes and takes longer than usual to respond. A change in mental status. Skin exam: PRESENT: dry, intact, warm. ABSENT: cyanosis, rash Tubes/Lines: PRESENT: Endotracheal Tube, Nasogastic Tube Laboratory/Radiographs Laboratory Results: 06/30/20 00:10 06/30/20 00:10 06/30/20 06/30/20 06/30/20 00:10 00:10 00:10 WBC 16.6 H RBC 3.88 L Hgb 11.1 L Hct 35.2 L MCV 91 MCH 28.6 MCHC 31.5 L RDW 13.0 Plt Count 118 L Seg Neutrophils % Not Reportable Carbonic Acid 1.57 H HCO3/H2CO3 Ratio 17:1 ABG pH 7.34 L ABG pCO2 52.2 H ABG pO2 33.0 L* ABG HCO3 27.3 H ABG O2 Saturation 58.8 L ABG Base Excess 0.6 FiO2 100% Sodium 136.5 L Potassium 5.1 H Chloride 100 Carbon Dioxide 32 H Anion Gap 5 BUN 37 H Creatinine 1.06 Est GFR ( Amer) > 60 Est GFR (Non-Af Amer) Glucose 417 H* Calcium 8.0 L Phosphorus 3.6 Magnesium 2.7 H Total Bilirubin 0.7 AST 33 Alkaline Phosphatase 125 C-Reactive Protein 181.6 H Total Protein 5.2 L Albumin 2.3 L Prealbumin Urine Color Urine Appearance Urine pH Ur Specific [place] Urine Protein Urine Glucose (UA) Urine Ketones Urine Blood Urine Nitrite Ur Leukocyte Esterase Urine WBC (Auto) Urine RBC (Auto) 06/30/20 06/30/20 00:10 08:35 WBC RBC Hgb Hct MCV MCH MCHC RDW Plt Count Seg Neutrophils % Carbonic Acid HCO3/H2CO3 Ratio ABG pH ABG pCO2 ABG pO2 ABG HCO3 ABG O2 Saturation ABG Base Excess FiO2 Sodium Cancelled Potassium Cancelled Chloride Cancelled Carbon Dioxide Cancelled Anion Gap Cancelled BUN Cancelled Creatinine Cancelled Est GFR ( Amer) Cancelled Est GFR (Non-Af Amer) Cancelled Glucose Cancelled Calcium Cancelled Phosphorus Cancelled Magnesium Total Bilirubin Cancelled AST Cancelled Alkaline Phosphatase Cancelled C-Reactive Protein Total Protein Cancelled Albumin Cancelled Prealbumin 9.3 L Urine Color YELLOW Urine Appearance CLEAR Urine pH 5.0 Ur Specific [place] 1.023 Urine Protein 30 H Urine Glucose (UA) >=500 H Urine Ketones NEGATIVE Urine Blood LARGE H Urine Nitrite NEGATIVE Ur Leukocyte Esterase NEGATIVE Urine WBC (Auto) 3 Urine RBC (Auto) 71 06/30/20 00:10 Troponin I 0.015 Impressions: Guidance Fluoroscopy 06/29/20 00:00 IMPRESSION: SUCCESSFUL PLACEMENT OF A 5 FR DUAL LUMEN 43 CM PICC IN THE RIGHT BASILIC VEIN. Interventional Vascular Procedure 06/29/20 00:00 IMPRESSION: SUCCESSFUL PLACEMENT OF A 5 FR DUAL LUMEN 43 CM PICC IN THE RIGHT BASILIC VEIN. PICC Line Insertion 06/29/20 00:00 IMPRESSION: SUCCESSFUL PLACEMENT OF A 5 FR DUAL LUMEN 43 CM PICC IN THE RIGHT BASILIC VEIN. All labs, radiographs, diagnostic studies and EKGs were personally reviewed: Yes In addition, reports of radiographic and diagnostic studies were read: Yes Assessment and Plan - Diagnosis (1) Pneumonia due to COVID-19 virus Is this a current diagnosis for this admission?: Yes Plan: Due to decreaseing mental status the patient was intubated before a respiratory arrest or other emergency. He no longer was a 'happy hypoxic' as before. (2) Diabetes mellitus type 2 in nonobese Is this a current diagnosis for this admission?: Yes Plan: Still not well controlled (3) Nutrition deficiency due to insufficient food Is this a current diagnosis for this admission?: Yes Plan: Now that he is intubated will stop TPN and begin tube feeds. Plan Summary: He met criteria for Covid intubation with decreasing MS. This does increase his mortality level some which at his age is already high. Critical Time Critical Time (minutes): 45 Level of Care: ICU Anticipated discharge: SNF Anticipated DC Timeframe: Other -: 1. The care of a critical patient is a dynamic process. This note is a fundraising sale representative synopsis but static in nature. The timeframe for treatments given in order is not necessarily the actual time these treatments may have been done. 2. This patient requires critical care secondary to ongoing requirements for therapy not offered or safe outside the critical care environment. Transfer to a lower level of care will result in altered life or limb morbidity and mortality. 3. Multidisciplinary rounds completed. 4. ABCDE bundle addressed.
--- NOTE | 2020-06-30 10:22 | Operative Report ---
Bedside Procedure - History of Present Illness History of Present Illness: JACI PALOMO is a 85 year old male patient of Dr. Jones who presented to the ED with recent diagnosis of positive status for COVID-19 infection and worsening shortness of breath, particularly with exertion. Patient reported associated minimally productive cough, loss of smell and taste over last one week. He claimed associated worsening generalized weakness. He admitted exposure to his granddaughter was was recently diagnosed with faulkner virus infection. He denied any diarrhea or abdominal pain. No chest pain or palpitation. His initial ED evaluation was significant for elevation of inflammatory indices and D-Dimer, electrolytes derangement, and chest X ray suggestive of left lower lobe airspace disease process. He was advised hospitalization for further evaluation and management. His morbidities are as listed below. 06/29/20: Asked to see patient for worsening hypoxia. Pt seen yesterday and not as hypoxic. Awake and talking although SOB. Same for today but with O2 saturations in 70s. He is a high risk for intubation, however he has never been tried in the proned position to try and remove some WOB and increase oxygenation. There sre some studies suggesting this be tried before intubation in spontaneously breathing patients. Indication for Procedure: Increasing mental status changes, hypoxia. Date: 06/30/20 Provider: PRESLEY HOLMAN - Intubation Orotracheal Time of Intubation: 10:00 Airway evaluation: Normal anatomy Mallampati Classification: Class 1 Medications: Etomidate, Succinylcholine Intubation method: Orotracheal Blade type: John Blade size: 4 Equipment used: Glidescope ETT size: 7.5 ETT secured at: Teeth ETT secured at (cm): 23 Post Intubation Xray: Yes Intubation Complications: No complications
--- NOTE | 2020-06-30 10:23 | RADIOLOGY REPORT (SQ) ---
EXAM DESCRIPTION: CHEST SINGLE VIEW IMAGES COMPLETED DATE/TIME: 06/30/2020 10:13 am REASON FOR STUDY: ETT placed COMPARISON: 06/29/2020 FINDINGS: One view chest AP portable semi upright 4 central line and endotracheal placement. This study is limited, the lung apices are excluded from the field of view. A nasogastric tube is in place and appropriately located. Suspect an endotracheal to just above the level of the aorta but this is not confirmed and further ch est imaging may be necessary to include the lower neck and upper lung kent. Right PICC line in place as before. Coarse bilateral largely upper lung field infiltrates are once again noted without change. TECHNICAL DOCUMENTATION: JOB ID: [id number] Reading location - IP/workstation name: [email or web address]
[2020-06-30] MEDS ORDERED: SUCCINYLCHOLINE CHLORIDE INJ 200 MG/10 ML VIAL ONE (10:37)
[2020-06-30] MEDS ORDERED: SIMETHICONE 80 MG TAB.CHEW NG PRN (10:38)
[2020-06-30] MEDS ORDERED: ACETAMINOPHEN 325 MG TABLET NG PRN (10:40)
[2020-06-30] MEDS: DEXTROSE 5%-WATER 250 ML with NOREPINEPHRINE BITARTRATE 4 MG IV PRN ×6 (11:10→22:35)
[2020-06-30] MEDS ORDERED: NOREPINEPHRINE BITARTRATE INJ/PF 4 MG/4 ML SDV IV ONE (11:12)
[2020-06-30 11:42] LABS: ARTERIAL BLOOD BASE EXCESS -1.9 mmol/L; ARTERIAL BLOOD H2CO3 1.75 mmol/L (1.05-1.35); ARTERIAL BLOOD HCO3 25.7 mmol/L (20-24); ARTERIAL BLOOD O2 SATURATION 67.9 % (94-98); ARTERIAL BLOOD PH 7.27 (7.35-7.45); ARTERIAL BLOOD TOTAL CO2 27.5 mmol/L (23-27)
[2020-06-30 11:43] LABS: ARTERIAL BLOOD FIO2 100%
[2020-06-30 11:44] LABS: ARTERIAL BLOOD PO2 40.9 mmHg (80-100)
[2020-06-30] MEDS: DOCUSATE SODIUM 100 MG/10 ML UDC NG SCH ×2 (11:52→17:28)
[2020-06-30] MEDS: ASCORBIC ACID 500 MG TABLET NG SCH ×3 (11:52→23:51)
[2020-06-30] MEDS: NYSTATIN 500000 UNIT/5 ML UDCUP PO SCH ×4 (11:52→23:50)
[2020-06-30] MEDS: CHOLECALCIFEROL (D3) 1,000 UNIT (25 MCG) TABLET NG SCH (11:52)
[2020-06-30] MEDS: FENTANYL CITRATE/PF 600 MCG/60 ML BAG IV PRN ×4 (11:53→21:35)
[2020-06-30] MEDS: LEVOTHYROXINE SODIUM 0.05 MG TABLET NG SCH (12:31)
[2020-06-30] MEDS ORDERED: SUCCINYLCHOLINE CHLORIDE INJ 200 MG/10 ML VIAL IV ONE (14:00)
[2020-06-30] MEDS: ZINC SULFATE 220 MG CAPSULE NG SCH (14:57)
[2020-06-30] MEDS: INSULIN, REGULAR 100 UNIT/100 ML NORMAL SALINE IV PRN ×2 (16:30)
[2020-06-30] MEDS: AMINO ACIDS 5 %/DEXTROSE 20 % 1,000 ML IV PRN (16:34)
--- NOTE | 2020-06-30 16:35 | RADIOLOGY REPORT (SQ) ---
EXAM DESCRIPTION: CHEST SINGLE VIEW IMAGES COMPLETED DATE/TIME: 06/30/2020 3:57 pm REASON FOR STUDY: ETT verification COMPARISON: 06/30/2020 earlier. FINDINGS: Single-view chest for endotracheal tube placement, AP portable upright. Appropriate endotracheal tube. Nasogastric tube down. Right PICC line in place. Coarse parenchymal infiltrates in the lungs persist, similar appearance. TECHNICAL DOCUMENTATION: JOB ID: [id number] Reading location - IP/workstation name: [email or web address]
[2020-06-30] MEDS ORDERED: DOCUSATE SODIUM 100 MG/10 ML UDC NG SCH (18:00)
[2020-06-30] MEDS: MELATONIN 5 MG TABLET NG SCH (23:50)
[2020-07-01] MEDS: FENTANYL CITRATE/PF 600 MCG/60 ML BAG IV PRN ×7 (00:45→22:16)
[2020-07-01] MEDS ORDERED: ROCURONIUM BROMIDE INJ 50 MG/5 ML VIAL IV ONE (02:13)
[2020-07-01] MEDS ORDERED: PROPOFOL 1,000 MG/100 ML INFUS..BTL IV ONE (02:27)
[2020-07-01] MEDS: PROPOFOL 1,000 MG/100 ML INFUS..BTL IV PRN ×2 (02:30→19:36)
[2020-07-01] MEDS: DEXTROSE 5%-WATER 250 ML with NOREPINEPHRINE BITARTRATE 4 MG IV PRN ×8 (04:10→17:48)
[2020-07-01] MEDS ORDERED: DEXTROSE 5%-WATER 250 ML with VASOPRESSIN 100 UNIT IV PRN ×2 (05:33)
[2020-07-01 06:07] LABS: HEMATOCRIT 32.7 % (37.9-51.0); HEMOGLOBIN 10.1 g/dL (13.5-17.0); MEAN CORPUSCULAR HEMOGLOBIN 28.1 pg (27.0-33.4); MEAN CORPUSCULAR HGB CONC 30.8 g/dL (32.0-36.0); MEAN CORPUSCULAR VOLUME 91 fl (80-97); PLATELET COUNT 117 10^3/uL (150-450); RED CELL DISTRIBUTION WIDTH 13.3 % (11.5-14.0); WHITE BLOOD COUNT 24.9 10^3/uL (4.0-10.5)
[2020-07-01] MEDS ORDERED: VASOPRESSIN INJ 20 UNIT/1 ML VIAL ONE (06:09)
[2020-07-01 06:11] LABS: ARTERIAL BLOOD BASE EXCESS 1.6 mmol/L; ARTERIAL BLOOD H2CO3 2.79 mmol/L (1.05-1.35); ARTERIAL BLOOD HCO3 32.5 mmol/L (20-24); ARTERIAL BLOOD O2 SATURATION 82.6 % (94-98); ARTERIAL BLOOD PO2 60.9 mmHg (80-100); ARTERIAL BLOOD TOTAL CO2 35.3 mmol/L (23-27)
[2020-07-01 06:14] LABS: ARTERIAL BLOOD FIO2 75%; ARTERIAL BLOOD PCO2 92.7 mmHg (35-45); ARTERIAL BLOOD PH 7.16 (7.35-7.45)
[2020-07-01 06:16] LABS: APPEARANCE,URINE CLOUDY; BILIRUBIN,URINE NEGATIVE (NEGATIVE); COLOR,URINE AMBER; GLUCOSE, URINE 50 mg/dL (NEGATIVE); KETONES,URINE NEGATIVE (NEGATIVE); LEUKOCYTE ESTERASE,URINE TRACE (NEGATIVE); NITRITE,URINE NEGATIVE (NEGATIVE); PROTEIN,URINE 30 mg/dL (NEGATIVE); URINE SPECIFIC GRAVITY 1.017
[2020-07-01 06:23] LABS: INTERNATIONAL RATION (INR) 1.34; PROTHROMBIN TIME 16.8 SEC (11.4-15.4)
[2020-07-01 06:25] LABS: URINE CREATININE 141.5 mg/dL (22-328)
[2020-07-01 06:29] LABS: ALBUMIN 2.2 g/dL (3.5-5.0); ALKALINE PHOSPHATASE 111 U/L (38-126); ANION GAP 5 (5-19); ASPARTATE AMINO TRANSFERASE 33 U/L (17-59); BILIRUBIN,DIRECT 0.3 mg/dL (0.0-0.4); BILIRUBIN,TOTAL 0.4 mg/dL (0.2-1.3); BLOOD UREA NITROGEN 61 mg/dL (7-20); CALCIUM 8.1 mg/dL (8.4-10.2); CARBON DIOXIDE 31 mmol/L (22-30); CHLORIDE 100 mmol/L (98-107); GLUCOSE 158 mg/dL (75-110); PHOSPHORUS 4.8 mg/dL (2.5-4.5); POTASSIUM 5.1 mmol/L (3.6-5.0); TOTAL PROTEIN 5.1 g/dL (6.3-8.2)
[2020-07-01] MEDS: ALBUMIN HUMAN 12.5 GM/50 ML RTUINJ IV SCH ×4 (07:00→14:07)
--- NOTE | 2020-07-01 08:20 | Operative Report ---
Bedside Procedure - History of Present Illness History of Present Illness: JACI PALOMO is a 85 year old male patient of Dr. Jones who presented to the ED with recent diagnosis of positive status for COVID-19 infection and worsening shortness of breath, particularly with exertion. Patient reported associated minimally productive cough, loss of smell and taste over last one week. He claimed associated worsening generalized weakness. He admitted exposure to his granddaughter was was recently diagnosed with faulkner virus infection. He denied any diarrhea or abdominal pain. No chest pain or palpitation. His initial ED evaluation was significant for elevation of inflammatory indices and D-Dimer, electrolytes derangement, and chest X ray suggestive of left lower lobe airspace disease process. He was advised hospitalization for further evaluation and management. His morbidities are as listed below. Acute respiratory failure due to hypoxia for which he was intubated earlier today and also hemodynamic instability on 12 mcg/min of Norepinephrine. PROCEDURE: ARTERIAL LINE INSERTION PROCEDURALIST: EMORY SCHULTZ INDICATION: HEMODYNAMIC INSTABILITY & FREQUENT ABG ANALYSIS SUCCESSFUL: YES COMPLICATIONS: NONE ANESTHESIA: 3 ML 1% LIDOCAINE DETAILS: Patient placed in proper procedural position followed by prepping and draping in usual sterile fashion. Utilizing ultrasound with a sterile probe cover, the left radial artery was identified and appears of normal structure and function. The dermis and subcutaneous tissue were anesthetized with 3 mL of 1% lidocaine. Next, a 22-gauge needle was visualized entering the left radial artery via ultrasound with a return of pulsatile blood. A guide wire was then advanced through the needle into the artery and the needle was moved. The guide wire was confirmed to be in the left radial artery and 2 views via ultrasound. A small skin stab incision was made on top of the wire to prepare for the catheter. Next, a 20-gauge 1 and three-quarter inch catheter was advanced over the wire into the left radial artery and the guidewire was subsequently removed, again noting pulsatile blood from the distal end of the catheter. The catheter was sutured into place and transducer tubing was hooked up to the catheter in usual fashion. Sterile transparent occlusive dressing was applied. Patient already procedure well, no complications. Good arterial waveform on the monitor. EBL 3 mL Indication for Procedure: Hemodynamic instability & frequent ABG analysis Date: 06/30/20 Provider: TRINO CASTLE
[2020-07-01] MEDS: INSULIN, REGULAR 100 UNIT/100 ML NORMAL SALINE IV PRN ×4 (08:27→20:48)
[2020-07-01] MEDS: LEVOTHYROXINE SODIUM 0.05 MG TABLET NG SCH (08:33)
[2020-07-01] MEDS: ASCORBIC ACID 500 MG TABLET NG SCH ×4 (08:34→23:31)
[2020-07-01] MEDS ORDERED: FAT EMULSIONS 250 ML IV SCH (10:00)
[2020-07-01] MEDS ORDERED: ZINC SULFATE 220 MG CAPSULE NG SCH (10:00)
[2020-07-01] MEDS ORDERED: CHOLECALCIFEROL (D3) 1,000 UNIT (25 MCG) TABLET NG SCH (10:00)
[2020-07-01] MEDS: DOCUSATE SODIUM 100 MG/10 ML UDC NG SCH ×2 (11:47→19:08)
[2020-07-01] MEDS: CHOLECALCIFEROL (D3) 1,000 UNIT (25 MCG) TABLET NG SCH (11:47)
[2020-07-01] MEDS: DEXAMETHASONE SOD PHOS INJ 10 MG/1 ML VIAL IV SCH (11:47)
[2020-07-01] MEDS: ZINC SULFATE 220 MG CAPSULE NG SCH (11:48)
[2020-07-01] MEDS: NYSTATIN 500000 UNIT/5 ML UDCUP PO SCH ×4 (11:48→21:00)
[2020-07-01] MEDS: VITAMIN B COMPLEX TABLET PO SCH (11:53)
[2020-07-01 12:22] LABS: ARTERIAL BLOOD BASE EXCESS 1.3 mmol/L; ARTERIAL BLOOD H2CO3 2.01 mmol/L (1.05-1.35); ARTERIAL BLOOD HCO3 29.5 mmol/L (20-24); ARTERIAL BLOOD O2 SATURATION 89.6 % (94-98); ARTERIAL BLOOD PCO2 66.8 mmHg (35-45); ARTERIAL BLOOD PH 7.26 (7.35-7.45); ARTERIAL BLOOD PO2 66.2 mmHg (80-100); ARTERIAL BLOOD TOTAL CO2 31.6 mmol/L (23-27)
[2020-07-01 12:23] LABS: ARTERIAL BLOOD FIO2 100%
[2020-07-01] MEDS ORDERED: HEPARIN SOD (PORCINE) 1,000 UNIT/ML 10 ML VIAL IV ONE (12:45)
[2020-07-01 14:28] LABS: HEMATOCRIT 29.6 % (37.9-51.0); HEMOGLOBIN 9.5 g/dL (13.5-17.0); MEAN CORPUSCULAR HEMOGLOBIN 29.3 pg (27.0-33.4); MEAN CORPUSCULAR HGB CONC 32.2 g/dL (32.0-36.0); MEAN CORPUSCULAR VOLUME 91 fl (80-97); PLATELET COUNT 107 10^3/uL (150-450); RED BLOOD COUNT 3.25 10^6/uL (4.35-5.55); RED CELL DISTRIBUTION WIDTH 13.4 % (11.5-14.0); WHITE BLOOD COUNT 23.3 10^3/uL (4.0-10.5)
[2020-07-01] MEDS: HEPARIN SODIUM,PORCINE/D5W 25,000 UNIT/250 ML RTUINJ IV PRN (14:51)
[2020-07-01] MEDS: AMINO ACIDS 5 %/DEXTROSE 20 % 1,000 ML IV PRN (16:14)
[2020-07-01] MEDS: MINERAL OIL/PETROLATUM,WHITE OPH OINT 3.5 GM OU SCH ×2 (19:09→21:01)
--- NOTE | 2020-07-01 19:22 | PDOC CRITICAL CARE PROG REPORT ---
General Date:: 07/01/20 ICU Day:: 3 Ventilator Day:: 2 Hospital Day:: 10 Resuscitation Status: Full Code Events in the past 12 to 24 Hours:: Increasing hypoxia, possible need for ICU. 06/30/20: Intubated for increased WOB. Lower O2 saturations and decreasing mental status. 07/01: Remains intubated. proned @ 0200. on norepinephrine, weaning. On propofol/fentanyl for sedation. Got intermittent doses of rocuronium overnight. Afebrile overnight. WBC 24.9, increasing. On steroids. On heparin. on insulin. Review of systems relevant to events:: Pulmonary Reason for ICU Addmission:: Intubated for Covid PNA. - Medications: Medications reviewed and adjusted accordingly: Yes Vasopressors:: norepinephrine Physical Exam Vital Signs: Temp Pulse Resp BP Pulse Ox 98.4 F 80 34 H 115/68 93 07/01/20 06:00 07/01/20 00:00 07/01/20 08:00 07/01/20 00:00 07/01/20 08:00 Intake & Output 06/30/20 07/01/20 07/02/20 06:59 06:59 06:59 Intake Total 1413 1979 50 Output Total 1845 610 Balance -432 1369 50 Weight 72.3 kg 69.8 kg Weight/Height Weight 69.8 kg Height 1.65 m General appearance: PRESENT: no acute distress, well-developed, well-nourished Head exam: PRESENT: atraumatic, normocephalic Eye exam: PRESENT: conjunctiva pink, EOMI, PERRLA. ABSENT: scleral icterus Respiratory exam: PRESENT: clear to auscultation robin. ABSENT: rales, rhonchi, wheezes Cardiovascular exam: PRESENT: RRR. ABSENT: diastolic murmur, rubs, systolic murmur Gentrourinary exam: PRESENT: indwelling catheter Extremities exam: PRESENT: full ROM. ABSENT: calf tenderness, clubbing, pedal edema Neurological exam: PRESENT: altered Psychiatric exam: ABSENT: agitated, anxious Tubes/Lines: PRESENT: Endotracheal Tube, Central Line - PICC, Arterial Catheter - L radial Laboratory/Radiographs Laboratory Results: 07/01/20 05:30 07/01/20 05:30 06/30/20 06/30/20 07/01/20 08:35 11:30 05:30 WBC RBC Hgb Hct MCV MCH MCHC RDW Plt Count Carbonic Acid 1.75 H HCO3/H2CO3 Ratio 14:1 ABG pH 7.27 L ABG pCO2 58.0 H ABG pO2 40.9 L* ABG HCO3 25.7 H ABG O2 Saturation 67.9 L ABG Base Excess -1.9 FiO2 100% Sodium Potassium Chloride Carbon Dioxide Anion Gap BUN Creatinine Est GFR ( Amer) Glucose Calcium Phosphorus Magnesium Total Bilirubin AST Alkaline Phosphatase Total Protein Albumin Prealbumin Urine Color YELLOW MERARI Urine Appearance CLEAR CLOUDY Urine pH 5.0 5.0 Ur Specific Gordon 1.023 1.017 Urine Protein 30 H 30 H Urine Glucose (UA) >=500 H 50 H Urine Ketones NEGATIVE NEGATIVE Urine Blood LARGE H MODERATE H Urine Nitrite NEGATIVE NEGATIVE Ur Leukocyte Esterase NEGATIVE TRACE H Urine WBC (Auto) 3 16 Urine RBC (Auto) 71 117 07/01/20 07/01/20 07/01/20 05:30 05:30 05:30 WBC 24.9 H RBC 3.60 L Hgb 10.1 L Hct 32.7 L MCV 91 MCH 28.1 MCHC 30.8 L RDW 13.3 Plt Count 117 L Carbonic Acid 2.79 H HCO3/H2CO3 Ratio 11:1 ABG pH 7.16 L* ABG pCO2 92.7 H* ABG pO2 60.9 L ABG HCO3 32.5 H ABG O2 Saturation 82.6 L ABG Base Excess 1.6 FiO2 75% Sodium 136.2 L Potassium 5.1 H Chloride 100 Carbon Dioxide 31 H Anion Gap 5 BUN 61 H Creatinine 1.60 H Est GFR ( Amer) 50 L Glucose 158 H Calcium 8.1 L Phosphorus 4.8 H Magnesium 3.1 H Total Bilirubin 0.4 AST 33 Alkaline Phosphatase 111 Total Protein 5.1 L Albumin 2.2 L Prealbumin 9.0 L Urine Color Urine Appearance Urine pH Ur Specific Gordon Urine Protein Urine Glucose (UA) Urine Ketones Urine Blood Urine Nitrite Ur Leukocyte Esterase Urine WBC (Auto) Urine RBC (Auto) 06/30/20 00:10 Troponin I 0.015 Impressions: Guidance Fluoroscopy 06/29/20 00:00 IMPRESSION: SUCCESSFUL PLACEMENT OF A 5 FR DUAL LUMEN 43 CM PICC IN THE RIGHT BASILIC VEIN. Interventional Vascular Procedure 06/29/20 00:00 IMPRESSION: SUCCESSFUL PLACEMENT OF A 5 FR DUAL LUMEN 43 CM PICC IN THE RIGHT BASILIC VEIN. PICC Line Insertion 06/29/20 00:00 IMPRESSION: SUCCESSFUL PLACEMENT OF A 5 FR DUAL LUMEN 43 CM PICC IN THE RIGHT BASILIC VEIN. All labs, radiographs, diagnostic studies and EKGs were personally reviewed: Yes In addition, reports of radiographic and diagnostic studies were read: Yes Assessment and Plan - Diagnosis (1) Acute hypoxemic respiratory failure Is this a current diagnosis for this admission?: Yes Plan: * Return to supine at 1800 today. * Follow-up ABG results. Titrate ventilator settings based on ABG results. (2) Pneumonia due to COVID-19 virus Is this a current diagnosis for this admission?: Yes Plan: * Already treated with azithromycin and remdesivir. * Currently on vitamin C, vitamin D3 and zinc sulfate. * Continue Decadron. (3) Diabetes mellitus type 2 in nonobese Is this a current diagnosis for this admission?: Yes (4) Hypothyroidism Qualifiers: Hypothyroidism type: unspecified Qualified Code(s): E03.9 - Hypothyroidism, unspecified Is this a current diagnosis for this admission?: Yes Critical Time Critical Time (minutes): 45 Level of Care: ICU -: 1. The care of a critical patient is a dynamic process. This note is a pharmacy sales representative synopsis but static in nature. The timeframe for treatments given in order is not necessarily the actual time these treatments may have been done. 2. This patient requires critical care secondary to ongoing requirements for therapy not offered or safe outside the critical care environment. Transfer to a lower level of care will result in altered life or limb morbidity and mortality. 3. Multidisciplinary rounds completed. 4. ABCDE bundle addressed.
[2020-07-01] MEDS: MELATONIN 5 MG TABLET NG SCH (21:00)
[2020-07-02] MEDS ORDERED: ADENOSINE INJ/PF 6 MG/2 ML SDV IV ONE (00:32)
[2020-07-02] MEDS ORDERED: METOPROLOL TARTRATE PF/INJ 5 MG/5 ML SDV IV ONE ×3 (00:33→20:44)
[2020-07-02] MEDS ORDERED: PHENYLEPHRINE HCL INJ/PF 10 MG/1 ML SDV ONE (00:44)
[2020-07-02] MEDS: DEXTROSE 5%-WATER 250 ML with NOREPINEPHRINE BITARTRATE 4 MG IV PRN ×6 (01:45→21:48)
[2020-07-02] MEDS: FENTANYL CITRATE/PF 600 MCG/60 ML BAG IV PRN ×6 (03:51→22:19)
[2020-07-02] MEDS: INSULIN, REGULAR 100 UNIT/100 ML NORMAL SALINE IV PRN ×4 (03:51→10:10)
[2020-07-02 04:26] LABS: ARTERIAL BLOOD BASE EXCESS -1.7 mmol/L; ARTERIAL BLOOD FIO2 100%; ARTERIAL BLOOD O2 SATURATION 93.1 % (94-98); ARTERIAL BLOOD PCO2 59.8 mmHg (35-45); ARTERIAL BLOOD PH 7.26 (7.35-7.45); ARTERIAL BLOOD PO2 76.9 mmHg (80-100); ARTERIAL BLOOD TOTAL CO2 27.8 mmol/L (23-27)
[2020-07-02 04:41] LABS: HEMATOCRIT 29.1 % (37.9-51.0); MEAN CORPUSCULAR HEMOGLOBIN 28.8 pg (27.0-33.4); MEAN CORPUSCULAR HGB CONC 31.1 g/dL (32.0-36.0); MEAN CORPUSCULAR VOLUME 93 fl (80-97); PLATELET COUNT 106 10^3/uL (150-450); RED BLOOD COUNT 3.14 10^6/uL (4.35-5.55); RED CELL DISTRIBUTION WIDTH 13.8 % (11.5-14.0); WHITE BLOOD COUNT 24.2 10^3/uL (4.0-10.5)
[2020-07-02 04:50] LABS: ANION GAP 6 (5-19); BLOOD UREA NITROGEN 65 mg/dL (7-20); C-REACTIVE PROTEIN 60.9 mg/L (<10.0); CALCIUM 7.9 mg/dL (8.4-10.2); CARBON DIOXIDE 29 mmol/L (22-30); CHLORIDE 98 mmol/L (98-107); GLUCOSE 123 mg/dL (75-110); PHOSPHORUS 3.9 mg/dL (2.5-4.5); POTASSIUM 4.9 mmol/L (3.6-5.0)
[2020-07-02 04:53] LABS: PARTIAL THROMBOPLASTIN TIME 46.8 SEC (23.5-35.8)
[2020-07-02 05:20] LABS: D-DIMER 7.65 ug/mL (0.00-0.50)
[2020-07-02 05:32] LABS: ABSOLUTE LYMPHOCYTES# (MANUAL) 2.2 10^3/uL (0.5-4.7); ABSOLUTE MONOCYTES # (MANUAL) 0.7 10^3/uL (0.1-1.4); BAND NEUTROPHILS % (MANUAL) 1 % (3-5); BASOPHILS % (MANUAL) 0 % (0-2); EOSINOPHILS % (MANUAL) 0 % (0-6); LYMPHOCYTES % (MANUAL) 9 % (13-45); MONOCYTES % (MANUAL) 3 % (3-13); SEGMENTED NEUTROPHILS % (MAN) 87 % (42-78); TOTAL CELLS COUNTED 100
[2020-07-02 05:33] LABS: OVALOCYTES SLIGHT; PLATELET COMMENT DECREASED; POIKILOCYTOSIS SLIGHT; SCHISTOCYTES SLIGHT; TEAR DROP CELLS SLIGHT; TOXIC GRANULATION SLIGHT
[2020-07-02] MEDS: PROPOFOL 1,000 MG/100 ML INFUS..BTL IV PRN ×2 (05:56→18:39)
[2020-07-02] MEDS: ASCORBIC ACID 500 MG TABLET NG SCH ×4 (05:56→23:54)
[2020-07-02] MEDS: LEVOTHYROXINE SODIUM 0.05 MG TABLET NG SCH (05:57)
--- NOTE | 2020-07-02 08:21 | RADIOLOGY REPORT (SQ) ---
EXAM DESCRIPTION: CHEST SINGLE VIEW IMAGES COMPLETED DATE/TIME: 07/02/2020 7:15 am REASON FOR STUDY: ETT tube COMPARISON: 06/30/2020. EXAM PARAMETERS: NUMBER OF VIEWS: One view. TECHNIQUE: Single frontal radiographic view of the chest acquired. RADIATION DOSE: NA LIMITATIONS: None. FINDINGS: LUNGS AND PLEURA: Bilateral airspace disease. Possible slight improvement in the right magali ng. MEDIASTINUM AND HILAR STRUCTURES: No masses. Contour normal. HEART AND VASCULAR STRUCTURES: Heart normal in size. Normal vasculature. BONES: No acute findings. HARDWARE: Stable tracheostomy tube, nasogastric tube, and PICC line. OTHER: No other significant finding. IMPRESSION: BILATERAL AIRSPACE DISEASE. SLIGHT IMPROVEMENT IN THE RIGHT LUNG. TECHNICAL DOCUMENTATION: JOB ID: [id number] [employer]- All Rights Reserved Reading location - IP/workstation name: [email or web address]
[2020-07-02] MEDS: HEPARIN SODIUM,PORCINE/D5W 25,000 UNIT/250 ML RTUINJ IV PRN (10:14)
[2020-07-02] MEDS: MINERAL OIL/PETROLATUM,WHITE OPH OINT 3.5 GM OU SCH ×2 (10:27→23:55)
[2020-07-02] MEDS: VITAMIN B COMPLEX TABLET PO SCH (10:28)
[2020-07-02] MEDS: CHOLECALCIFEROL (D3) 1,000 UNIT (25 MCG) TABLET NG SCH (10:29)
[2020-07-02] MEDS: DOCUSATE SODIUM 100 MG/10 ML UDC NG SCH ×2 (10:31→18:32)
[2020-07-02] MEDS: NYSTATIN 500000 UNIT/5 ML UDCUP PO SCH ×4 (10:31→23:54)
[2020-07-02] MEDS: DEXAMETHASONE SOD PHOS INJ 10 MG/1 ML VIAL IV SCH (10:35)
[2020-07-02] MEDS: ZINC SULFATE 220 MG CAPSULE NG SCH (10:40)
[2020-07-02 12:55] LABS: ARTERIAL BLOOD BASE EXCESS -2.1 mmol/L; ARTERIAL BLOOD H2CO3 2.19 mmol/L (1.05-1.35); ARTERIAL BLOOD HCO3 27.1 mmol/L (20-24); ARTERIAL BLOOD O2 SATURATION 66.3 % (94-98); ARTERIAL BLOOD PO2 43.3 mmHg (80-100); ARTERIAL BLOOD TOTAL CO2 29.4 mmol/L (23-27)
[2020-07-02 12:56] LABS: ARTERIAL BLOOD FIO2 100%
[2020-07-02 12:58] LABS: ARTERIAL BLOOD PCO2 72.8 mmHg (35-45); ARTERIAL BLOOD PH 7.19 (7.35-7.45)
[2020-07-02] MEDS: AMINO ACIDS 5 %/DEXTROSE 20 % 1,000 ML IV PRN (15:47)
--- NOTE | 2020-07-02 17:22 | PDOC CRITICAL CARE PROG REPORT ---
General Date:: 07/02/20 ICU Day:: 4 Ventilator Day:: 3 Hospital Day:: 11 Resuscitation Status: Full Code Events in the past 12 to 24 Hours:: Increasing hypoxia, possible need for ICU. 06/30/20: Intubated for increased WOB. Lower O2 saturations and decreasing mental status. 07/01: Remains intubated. proned @ 0200. on norepinephrine, weaning. On propofol/fentanyl for sedation. Got intermittent doses of rocuronium overnight. Afebrile overnight. WBC 24.9, increasing. On steroids. On heparin. on insulin. 07/02: Remains intubated. Supine. On norepinephrine @ 7 mcg/min. Overnight, was reported to have an episode of atrial fibrillation with rapid ventricular response, heart rate 190s. WBC 24.9>23.3>24.2. Nurse raises concern about patient being on insulin infusion and fingerstick glucose trending toward the lower range of normal. Review of systems relevant to events:: Pulmonary Reason for ICU Addmission:: Intubated for Covid PNA. - Medications: Medications reviewed and adjusted accordingly: Yes Vasopressors:: norepinephrine Sedation:: Propofol Physical Exam Vital Signs: Temp Pulse Resp BP Pulse Ox 97.6 F 81 30 H 126/56 H 91 L 07/01/20 20:14 07/02/20 08:00 07/02/20 08:00 07/02/20 08:00 07/02/20 08:00 Intake & Output 07/01/20 07/02/20 07/03/20 06:59 06:59 06:59 Intake Total 1979 1547 250 Output Total 610 710 Balance 1369 837 250 Weight 69.8 kg 75.1 kg Weight/Height Weight 75.1 kg Height 1.65 m General appearance: PRESENT: no acute distress, well-developed, well-nourished Head exam: PRESENT: atraumatic, normocephalic Eye exam: PRESENT: conjunctiva pink, EOMI, PERRLA. ABSENT: scleral icterus Mouth exam: PRESENT: moist, tongue midline Respiratory exam: PRESENT: decreased breath sounds, symmetrical. ABSENT: rales, rhonchi, wheezes Cardiovascular exam: PRESENT: irregular rhythm, tachycardia. ABSENT: diastolic murmur, rubs, systolic murmur Pulses: PRESENT: normal dorsalis pedis pul GI/Abdominal exam: PRESENT: normal bowel sounds, soft. ABSENT: distended, guarding, mass, organolmegaly, rebound, tenderness Gentrourinary exam: PRESENT: indwelling catheter Extremities exam: PRESENT: full ROM. ABSENT: calf tenderness, clubbing, pedal edema Neurological exam: PRESENT: altered, CN II-XII grossly intact. ABSENT: reflexes normal Psychiatric exam: ABSENT: agitated, anxious Skin exam: PRESENT: dry, intact, warm. ABSENT: cyanosis, rash Tubes/Lines: PRESENT: Endotracheal Tube, Arterial Catheter, Other - Orogastric Laboratory/Radiographs Laboratory Results: 07/02/20 04:00 07/02/20 04:00 07/01/20 07/01/20 07/01/20 12:05 14:15 20:40 WBC 23.3 H RBC 3.25 L Hgb 9.5 L Hct 29.6 L MCV 91 MCH 29.3 MCHC 32.2 RDW 13.4 Plt Count 107 L Seg Neutrophils % Carbonic Acid 2.01 H HCO3/H2CO3 Ratio 14:1 ABG pH 7.26 L ABG pCO2 66.8 H ABG pO2 66.2 L ABG HCO3 29.5 H ABG O2 Saturation 89.6 L ABG Base Excess 1.3 FiO2 100% Sodium Potassium Chloride Carbon Dioxide Anion Gap BUN Creatinine Est GFR ( Amer) Glucose Calcium Phosphorus Magnesium C-Reactive Protein Triglycerides 155 H 07/02/20 07/02/20 07/02/20 04:00 04:00 04:00 WBC 24.2 H RBC 3.14 L Hgb 9.0 L Hct 29.1 L MCV 93 MCH 28.8 MCHC 31.1 L RDW 13.8 Plt Count 106 L Seg Neutrophils % Not Reportable Carbonic Acid 1.80 H HCO3/H2CO3 Ratio 14:1 ABG pH 7.26 L ABG pCO2 59.8 H ABG pO2 76.9 L ABG HCO3 26.0 H ABG O2 Saturation 93.1 L ABG Base Excess -1.7 FiO2 100% Sodium 132.5 L Potassium 4.9 Chloride 98 Carbon Dioxide 29 Anion Gap 6 BUN 65 H Creatinine 2.05 H Est GFR ( Amer) 38 L Glucose 123 H Calcium 7.9 L Phosphorus 3.9 Magnesium 3.0 H C-Reactive Protein 60.9 H Triglycerides 06/30/20 00:10 Troponin I 0.015 Impressions: Guidance Fluoroscopy 06/29/20 00:00 IMPRESSION: SUCCESSFUL PLACEMENT OF A 5 FR DUAL LUMEN 43 CM PICC IN THE RIGHT BASILIC VEIN. Interventional Vascular Procedure 06/29/20 00:00 IMPRESSION: SUCCESSFUL PLACEMENT OF A 5 FR DUAL LUMEN 43 CM PICC IN THE RIGHT BASILIC VEIN. PICC Line Insertion 06/29/20 00:00 IMPRESSION: SUCCESSFUL PLACEMENT OF A 5 FR DUAL LUMEN 43 CM PICC IN THE RIGHT BASILIC VEIN. Chest X-Ray 07/02/20 05:00 IMPRESSION: BILATERAL AIRSPACE DISEASE. SLIGHT IMPROVEMENT IN THE RIGHT LUNG. All labs, radiographs, diagnostic studies and EKGs were personally reviewed: Yes In addition, reports of radiographic and diagnostic studies were read: Yes Assessment and Plan - Diagnosis (1) Acute hypoxemic respiratory failure Is this a current diagnosis for this admission?: Yes Plan: * Return to supine at 1800 today. * Clemmons of PC mode ventilation. f 30, 16+PEEP/14, 100%, Ti 1.05. * check proBNP. (2) Pneumonia due to COVID-19 virus Is this a current diagnosis for this admission?: Yes Plan: * Already treated with azithromycin and remdesivir. * Currently on vitamin C, vitamin D3 and zinc sulfate. * Continue Decadron. (3) Acute kidney injury Is this a current diagnosis for this admission?: Yes Plan: * Monitor urine output. * Trial dose of furosemide 40 mg IV (single dose). * Renal dosing of medications. * Avoid nephrotoxic drugs. (4) Diabetes mellitus type 2 in nonobese Is this a current diagnosis for this admission?: Yes Plan: * At this point, optimally controlled. * Stop insulin infusion. * Start sliding scale insulin coverage. * Accu-Cheks every 6. (5) Hypothyroidism Qualifiers: Hypothyroidism type: unspecified Qualified Code(s): E03.9 - Hypothyroidism, unspecified Is this a current diagnosis for this admission?: Yes Critical Time Critical Time (minutes): 45 Level of Care: ICU -: 1. The care of a critical patient is a dynamic process. This note is a repres entative synopsis but static in nature. The timeframe for treatments given in order is not necessarily the actual time these treatments may have been done. 2. This patient requires critical care secondary to ongoing requirements for therapy not offered or safe outside the critical care environment. Transfer to a lower level of care will result in altered life or limb morbidity and mortality. 3. Multidisciplinary rounds completed. 4. ABCDE bundle addressed.
--- NOTE | 2020-07-02 17:37 | RADIOLOGY REPORT (SQ) ---
EXAM DESCRIPTION: CHEST SINGLE VIEW IMAGES COMPLETED DATE/TIME: 07/02/2020 5:23 pm REASON FOR STUDY: worsening hypoxia COMPARISON: 07/02/2020 EXAM PARAMETERS: NUMBER OF VIEWS: One view. TECHNIQUE: Single frontal radiographic view of the chest acquired. RADIATION DOSE: NA LIMITATIONS: None. FINDINGS: LUNGS AND PLEURA: Persistent bilateral mixed airspace and interstitial disease with some progression since the prior examination. Bilateral small pleural effusions appears slightly larger, more so on the left. No pneumothorax. MEDIASTINUM AND HILAR STRUCTURES: Stable appearance. HEART AND VASCULAR STRUCTURES: Stable appearance. BONES: No acute findings. HARDWARE: Endotracheal tube, nasogastric tube and right PICC line are again identified. OTHER: No other significant finding. IMPRESSION: 1. Persistent bilateral mixed airspace and interstitial disease with some progression s moe the prior examination performed earlier on the same date 07/02/2020. Small bilateral pleural effu sions slightly increased, larger on the left. TECHNICAL DOCUMENTATION: JOB ID: [id number] 2010 [employer]- All Rights Reserved Reading location - IP/workstation name: [email or web address]
[2020-07-02] MEDS ORDERED: FUROSEMIDE INJ/PF 40 MG/4 ML SDV IV ONE (17:45)
[2020-07-02] MEDS: INSULIN LISPRO 100 UNIT/ML 3 ML VIAL SUBCUT SCH (18:21)
[2020-07-02 18:52] VITALS: BP 114/49
[2020-07-02 20:39] LABS: ARTERIAL BLOOD BASE EXCESS -9.9 mmol/L; ARTERIAL BLOOD H2CO3 2.09 mmol/L (1.05-1.35); ARTERIAL BLOOD HCO3 20.1 mmol/L (20-24); ARTERIAL BLOOD O2 SATURATION 50.5 % (94-98); ARTERIAL BLOOD TOTAL CO2 22.2 mmol/L (23-27)
[2020-07-02 20:40] LABS: ARTERIAL BLOOD FIO2 100%
[2020-07-02 20:41] LABS: ARTERIAL BLOOD PCO2 69.4 mmHg (35-45); ARTERIAL BLOOD PH 7.08 (7.35-7.45); ARTERIAL BLOOD PO2 37.5 mmHg (80-100)
[2020-07-02] MEDS ORDERED: VASOPRESSIN INJ 20 UNIT/1 ML VIAL ONE (20:43)
--- NOTE | 2020-07-02 21:12 | RADIOLOGY REPORT (SQ) ---
EXAM DESCRIPTION: XR CHEST 1 VIEW. 8:20 PM. COMPLETED DATE/TME: 07/02/2020 20:35 CLINICAL HISTORY: 85 years, Male, RESPIRATORY DISTRESS COMPARISON: Film today at 5:50 AM. Film from 06/28/2020.. NUMBER OF VIEWS: One TECHNIQUE: Portable chest x-ray FINDINGS: New endotracheal tube well above the joana. PICC line in the superior vena cava. Bilateral groundglass infiltrates improved since 06/28/2020. No suspicious pleural effusion or pneumothorax.
[2020-07-02 21:55] LABS: ARTERIAL BLOOD BASE EXCESS -12.5 mmol/L; ARTERIAL BLOOD H2CO3 1.94 mmol/L (1.05-1.35); ARTERIAL BLOOD HCO3 17.7 mmol/L (20-24); ARTERIAL BLOOD O2 SATURATION 41.7 % (94-98); ARTERIAL BLOOD PCO2 64.4 mmHg (35-45); ARTERIAL BLOOD TOTAL CO2 19.7 mmol/L (23-27)
[2020-07-02 21:56] LABS: ARTERIAL BLOOD FIO2 100%
[2020-07-02 21:58] LABS: ARTERIAL BLOOD PH 7.06 (7.35-7.45); ARTERIAL BLOOD PO2 33.2 mmHg (80-100)
[2020-07-02] MEDS ORDERED: SODIUM BICARBONATE 8.4% INJ 50 MEQ/50 ML DISP.SYRIN ONE ×3 (22:16→23:54)
[2020-07-02] MEDS ORDERED: EPINEPHRINE INJ 1 MG/10 ML DISP.SYRIN ONE ×2 (22:23→22:24)
[2020-07-02 23:12] LABS: ARTERIAL BLOOD BASE EXCESS -15.8 mmol/L; ARTERIAL BLOOD H2CO3 2.26 mmol/L (1.05-1.35); ARTERIAL BLOOD O2 SATURATION 31.3 % (94-98); ARTERIAL BLOOD TOTAL CO2 18.3 mmol/L (23-27)
[2020-07-02 23:14] LABS: ARTERIAL BLOOD FIO2 100%; ARTERIAL BLOOD PCO2 75.1 mmHg (35-45); ARTERIAL BLOOD PH 6.95 (7.35-7.45); ARTERIAL BLOOD PO2 30.9 mmHg (80-100)
[2020-07-03] MEDS: MELATONIN 5 MG TABLET NG SCH ×2 (00:01→21:40)
[2020-07-03] MEDS: DEXTROSE 5%-WATER 250 ML with NOREPINEPHRINE BITARTRATE 4 MG IV PRN ×22 (00:02→23:30)
[2020-07-03] MEDS: DEXTROSE 5%-WATER 1000 ML 1,000 ML with SODIUM BICARBONATE 150 MEQ IV PRN ×6 (00:15→16:52)
[2020-07-03] MEDS ORDERED: RINGERS SOLUTION,LACTATED 1,000 ML IV ONE ×8 (01:45→02:00)
[2020-07-03] MEDS ORDERED: DEXTROSE 5%-WATER 250 ML with VASOPRESSIN 100 UNIT IV PRN ×2 (01:47)
[2020-07-03] MEDS ORDERED: METOPROLOL TARTRATE PF/INJ 5 MG/5 ML SDV IV ONE (02:00)
[2020-07-03] MEDS ORDERED: EPINEPHRINE INJ 1 MG/10 ML DISP.SYRIN IV ONE ×2 (02:00)
[2020-07-03] MEDS ORDERED: SODIUM BICARBONATE 8.4% INJ 50 MEQ/50 ML DISP.SYRIN IV ONE ×3 (02:00)
[2020-07-03] MEDS: FENTANYL CITRATE/PF 600 MCG/60 ML BAG IV PRN ×2 (03:30→08:25)
[2020-07-03 04:29] LABS: ARTERIAL BLOOD BASE EXCESS -16.9 mmol/L; ARTERIAL BLOOD H2CO3 2.15 mmol/L (1.05-1.35); ARTERIAL BLOOD HCO3 15.2 mmol/L (20-24); ARTERIAL BLOOD O2 SATURATION 45.2 % (94-98); ARTERIAL BLOOD TOTAL CO2 17.4 mmol/L (23-27)
[2020-07-03 04:30] LABS: APPEARANCE,URINE CLOUDY; ARTERIAL BLOOD FIO2 100%; BILIRUBIN,URINE NEGATIVE (NEGATIVE); CALCIUM OXALATE CRYSTALS,URINE FEW /HPF; GLUCOSE, URINE 50 mg/dL (NEGATIVE); KETONES,URINE NEGATIVE (NEGATIVE); LEUKOCYTE ESTERASE,URINE NEGATIVE (NEGATIVE); NITRITE,URINE NEGATIVE (NEGATIVE); PROTEIN,URINE 30 mg/dL (NEGATIVE); URINE SPECIFIC GRAVITY 1.013; UROBILINOGEN,URINE NEGATIVE mg/dL (<2.0)
[2020-07-03 04:31] LABS: ARTERIAL BLOOD PCO2 71.5 mmHg (35-45); ARTERIAL BLOOD PH 6.95 (7.35-7.45); ARTERIAL BLOOD PO2 39.2 mmHg (80-100)
[2020-07-03 04:32] LABS: COLOR,URINE DARK YELLOW
[2020-07-03 04:37] LABS: HEMATOCRIT 29.4 % (37.9-51.0); HEMOGLOBIN 8.5 g/dL (13.5-17.0); MEAN CORPUSCULAR HEMOGLOBIN 28.7 pg (27.0-33.4); MEAN CORPUSCULAR HGB CONC 28.9 g/dL (32.0-36.0); PLATELET COUNT 110 10^3/uL (150-450); RED BLOOD COUNT 2.96 10^6/uL (4.35-5.55); RED CELL DISTRIBUTION WIDTH 14.6 % (11.5-14.0); WHITE BLOOD COUNT 26.3 10^3/uL (4.0-10.5)
[2020-07-03 04:58] LABS: ALBUMIN 1.9 g/dL (3.5-5.0); ALKALINE PHOSPHATASE 69 U/L (38-126); ANION GAP 17 (5-19); BILIRUBIN,DIRECT 0.8 mg/dL (0.0-0.4); BILIRUBIN,TOTAL 1.2 mg/dL (0.2-1.3); BLOOD UREA NITROGEN 61 mg/dL (7-20); CARBON DIOXIDE 18 mmol/L (22-30); CHLORIDE 95 mmol/L (98-107); GLUCOSE 330 mg/dL (75-110); PHOSPHORUS 6.7 mg/dL (2.5-4.5); POTASSIUM 5.4 mmol/L (3.6-5.0); TOTAL PROTEIN 4.4 g/dL (6.3-8.2)
[2020-07-03 05:16] LABS: ABSOLUTE LYMPHOCYTES# (MANUAL) 4.7 10^3/uL (0.5-4.7); ABSOLUTE MONOCYTES # (MANUAL) 1.3 10^3/uL (0.1-1.4); BAND NEUTROPHILS % (MANUAL) 5 % (3-5); BASOPHILS % (MANUAL) 0 % (0-2); EOSINOPHILS % (MANUAL) 0 % (0-6); LYMPHOCYTES % (MANUAL) 18 % (13-45); MONOCYTES % (MANUAL) 5 % (3-13); NUCLEATED RED BLOOD CELLS 2 /100 WBC (0); SEGMENTED NEUTROPHILS % (MAN) 72 % (42-78); TOTAL CELLS COUNTED 100
[2020-07-03 05:18] LABS: ANISOCYTOSIS SLIGHT; MEAN CORPUSCULAR VOLUME 99 fl (80-97); PLATELET COMMENT DECREASED; POLYCHROMASIA SLIGHT; TOXIC GRANULATION 1+; TOXIC VACUOLATION PRESENT
[2020-07-03 05:53] LABS: ASPARTATE AMINO TRANSFERASE 991 U/L (17-59)
[2020-07-03 05:54] LABS: CALCIUM 6.9 mg/dL (8.4-10.2)
[2020-07-03] MEDS: INSULIN LISPRO 100 UNIT/ML 3 ML VIAL SUBCUT SCH ×4 (06:40→18:41)
[2020-07-03] MEDS: ASCORBIC ACID 500 MG TABLET NG SCH ×3 (06:40→19:23)
[2020-07-03] MEDS: LEVOTHYROXINE SODIUM 0.05 MG TABLET NG SCH (06:40)
[2020-07-03] MEDS ORDERED: SODIUM BICARBONATE 8.4% INJ 50 MEQ/50 ML DISP.SYRIN ONE ×2 (06:53→10:08)
[2020-07-03] MEDS ORDERED: EPINEPHRINE INJ 1 MG/10 ML DISP.SYRIN ONE (10:08)
[2020-07-03] MEDS ORDERED: CALCIUM GLUCONATE 1000 MG/10 ML INJ IV ONE (10:08)
[2020-07-03] MEDS: DEXAMETHASONE SOD PHOS INJ 10 MG/1 ML VIAL IV SCH (10:54)
[2020-07-03] MEDS: HEPARIN SODIUM,PORCINE/D5W 25,000 UNIT/250 ML RTUINJ IV PRN (10:54)
[2020-07-03] MEDS ORDERED: PANTOPRAZOLE SODIUM 40 MG VIAL IV SCH (11:00)
[2020-07-03] MEDS: MINERAL OIL/PETROLATUM,WHITE OPH OINT 3.5 GM OU SCH ×2 (11:01→21:40)
[2020-07-03] MEDS: NYSTATIN 500000 UNIT/5 ML UDCUP PO SCH ×4 (11:02→21:40)
[2020-07-03] MEDS: DOCUSATE SODIUM 100 MG/10 ML UDC NG SCH ×2 (11:05→19:23)
[2020-07-03] MEDS: ZINC SULFATE 220 MG CAPSULE NG SCH (11:05)
[2020-07-03] MEDS: VITAMIN B COMPLEX TABLET PO SCH (11:10)
[2020-07-03] MEDS: CHOLECALCIFEROL (D3) 1,000 UNIT (25 MCG) TABLET NG SCH (11:10)
[2020-07-03] MEDS ORDERED: VANCOMYCIN HCL 0 MG in DEXTROSE 5%-WATER 250 ML IV NR (14:15)
[2020-07-03 15:05] LABS: ARTERIAL BLOOD BASE EXCESS -7.1 mmol/L; ARTERIAL BLOOD H2CO3 2.08 mmol/L (1.05-1.35); ARTERIAL BLOOD HCO3 22.4 mmol/L (20-24); ARTERIAL BLOOD O2 SATURATION 52.6 % (94-98); ARTERIAL BLOOD TOTAL CO2 24.5 mmol/L (23-27)
[2020-07-03 15:07] LABS: ARTERIAL BLOOD FIO2 100%
[2020-07-03 15:08] LABS: ARTERIAL BLOOD PCO2 69.2 mmHg (35-45); ARTERIAL BLOOD PH 7.13 (7.35-7.45)
[2020-07-03] MEDS ORDERED: VANCOMYCIN HCL 1,250 MG in DEXTROSE 5%-WATER 250 ML IV SCH (17:00)
[2020-07-03] MEDS ORDERED: WATER FOR INJECTION,STERILE 1,000 ML with SODIUM BICARBONATE 150 MEQ IV PRN ×2 (17:47)
[2020-07-03] MEDS ORDERED: NORMAL SALINE 500 ML with ROCURONIUM BROMIDE 500 MG IV PRN ×2 (17:49)
[2020-07-03] MEDS ORDERED: INSULIN REG, HUMAN 100 UNIT/ML 3 ML VIAL (PYX) IV ONE (18:30)
[2020-07-03] MEDS: PROPOFOL 1,000 MG/100 ML INFUS..BTL IV PRN (18:31)
--- NOTE | 2020-07-03 19:21 | PDOC CRITICAL CARE PROG REPORT ---
General Date:: 07/03/20 ICU Day:: 5 Ventilator Day:: 4 Hospital Day:: 12 Resuscitation Status: Full Code Events in the past 12 to 24 Hours:: Increasing hypoxia, possible need for ICU. 06/30/20: Intubated for increased WOB. Lower O2 saturations and decreasing mental status. 07/01: Remains intubated. proned @ 0200. on norepinephrine, weaning. On propofol/fentanyl for sedation. Got intermittent doses of rocuronium overnight. Afebrile overnight. WBC 24.9, increasing. On steroids. On heparin. on insulin. 07/02: Remains intubated. Supine. On norepinephrine @ 7 mcg/min. Overnight, was reported to have an episode of atrial fibrillation with rapid ventricular response, heart rate 190s. WBC 24.9>23.3>24.2. Nurse raises concern about patient being on insulin infusion and fingerstick glucose trending toward the lower range of normal. 07/03: Remains intubated. Had an episode of profound oxygen desaturation yesterday at the end of day shift, which required bag ventilation. This episode was associated with profound hypotension. Responsive to straight leg raising test. The patient was given IV fluid boluses throughout the night. Nonetheless, he is now on Levophed and vasopressin at maximum doses. He is off propofol (due to hypotension). Continues on fentanyl. Had another episode of hypoxia and hypotension overnight. Labs this morning show interval worsening in renal function and liver function compatible with shock with multiorgan failure. Blood cultures are isolating gram-positive cocci in clusters. Review of systems relevant to events:: Pulmonary Reason for ICU Addmission:: Intubated for Covid PNA. - Medications: Medications reviewed and adjusted accordingly: Yes Vasopressors:: norepinephrine Sedation:: Propofol Physical Exam Vital Signs: Temp Pulse Resp BP Pulse Ox 97.7 F 128 H 13 114/49 L 80 L 07/03/20 10:00 07/02/20 19:00 07/03/20 12:45 07/02/20 18:00 07/03/20 13:10 Intake & Output 07/02/20 07/03/20 07/04/20 06:59 06:59 06:59 Intake Total 1547 1750 1780 Output Total 048 317 90 Balance 837 1433 1690 Weight 75.1 kg 86.2 kg Weight/Height Weight 86.2 kg Height 1.65 m Laboratory/Radiographs Laboratory Results: 07/03/20 04:02 07/03/20 04:02 07/02/20 07/02/20 07/02/20 20:13 21:23 21:35 WBC RBC Hgb Hct MCV MCH MCHC RDW Plt Count Seg Neutrophils % Carbonic Acid 2.09 H 1.94 H HCO3/H2CO3 Ratio 9:1 9:1 ABG pH 7.08 L* 7.06 L* ABG pCO2 69.4 H* 64.4 H ABG pO2 37.5 L* 33.2 L* ABG HCO3 20.1 17.7 L ABG O2 Saturation 50.5 L 41.7 L ABG Base Excess -9.9 -12.5 FiO2 100% 100% Sodium Potassium Chloride Carbon Dioxide Anion Gap BUN Creatinine Est GFR ( Amer) Glucose Lactic Acid 8.1 H Calcium Phosphorus Magnesium Total Bilirubin AST Alkaline Phosphatase Total Protein Albumin Urine Color Urine Appearance Urine pH Ur Specific [place] Urine Protein Urine Glucose (UA) Urine Ketones Urine Blood Urine Nitrite Ur Leukocyte Esterase Urine WBC (Auto) Urine RBC (Auto) 07/02/20 07/03/20 07/03/20 23:00 04:02 04:02 WBC 26.3 H RBC 2.96 L Hgb 8.5 L Hct 29.4 L MCV 99 H D MCH 28.7 MCHC 28.9 L RDW 14.6 H Plt Count 110 L Seg Neutrophils % Not Reportable Carbonic Acid 2.26 H HCO3/H2CO3 Ratio 7:1 ABG pH 6.95 L* ABG pCO2 75.1 H* ABG pO2 30.9 L* ABG HCO3 16.0 L ABG O2 Saturation 31.3 L ABG Base Excess -15.8 FiO2 100% Sodium Potassium Chloride Carbon Dioxide Anion Gap BUN Creatinine Est GFR ( Amer) Glucose Lactic Acid Calcium Phosphorus Magnesium Total Bilirubin AST Alkaline Phosphatase Total Protein Albumin Urine Color DARK YELLOW Urine Appearance CLOUDY Urine pH 5.0 Ur Specific [place] 1.013 Urine Protein 30 H Urine Glucose (UA) 50 H Urine Ketones NEGATIVE Urine Blood MODERATE H Urine Nitrite NEGATIVE Ur Leukocyte Esterase NEGATIVE Urine WBC (Auto) 6 Urine RBC (Auto) 145 07/03/20 07/03/20 07/03/20 04:02 04:02 04:02 WBC RBC Hgb Hct MCV MCH MCHC RDW Plt Count Seg Neutrophils % Carbonic Acid 2.15 H HCO3/H2CO3 Ratio 7:1 ABG pH 6.95 L* ABG pCO2 71.5 H* ABG pO2 39.2 L* ABG HCO3 15.2 L ABG O2 Saturation 45.2 L ABG Base Excess -16.9 FiO2 100% Sodium 130.2 L Potassium 5.4 H Chloride 95 L Carbon Dioxide 18 L Anion Gap 17 BUN 61 H Creatinine 2.85 H Est GFR ( Amer) 26 L Glucose 330 H Lactic Acid 13.4 H Calcium 6.9 L* Phosphorus 6.7 H Magnesium 2.6 H Total Bilirubin 1.2 AST 991 H Alkaline Phosphatase 69 Total Protein 4.4 L Albumin 1.9 L Urine Color Urine Appearance Urine pH Ur Specific [place] Urine Protein Urine Glucose (UA) Urine Ketones Urine Blood Urine Nitrite Ur Leukocyte Esterase Urine WBC (Auto) Urine RBC (Auto) 07/03/20 10:35 WBC RBC Hgb Hct MCV MCH MCHC RDW Plt Count Seg Neutrophils % Carbonic Acid HCO3/H2CO3 Ratio ABG pH ABG pCO2 ABG pO2 ABG HCO3 ABG O2 Saturation ABG Base Excess FiO2 Sodium Potassium Chloride Carbon Dioxide Anion Gap BUN Creatinine Est GFR ( Amer) Glucose Lactic Acid 11.8 H Calcium Phosphorus Magnesium Total Bilirubin AST Alkaline Phosphatase Total Protein Albumin Urine Color Urine Appearance Urine pH Ur Specific [place] Urine Protein Urine Glucose (UA) Urine Ketones Urine Blood Urine Nitrite Ur Leukocyte Esterase Urine WBC (Auto) Urine RBC (Auto) 07/02/20 17:30 Tracheal Aspirate Gram Stain - Final 06/30/20 07/02/20 07/03/20 00:10 10:22 04:02 Troponin I 0.015 NT-Pro-B Natriuret Pep 498 H 1260 H Impressions: Guidance Fluoroscopy 06/29/20 00:00 IMPRESSION: SUCCESSFUL PLACEMENT OF A 5 FR DUAL LUMEN 43 CM PICC IN THE RIGHT BASILIC VEIN. Interventional Vascular Procedure 06/29/20 00:00 IMPRESSION: SUCCESSFUL PLACEMENT OF A 5 FR DUAL LUMEN 43 CM PICC IN THE RIGHT BASILIC VEIN. PICC Line Insertion 06/29/20 00:00 IMPRESSION: SUCCESSFUL PLACEMENT OF A 5 FR DUAL LUMEN 43 CM PICC IN THE RIGHT BASILIC VEIN. Chest X-Ray 07/02/20 16:43 IMPRESSION: 1. Persistent bilateral mixed airspace and interstitial disease with some progression since the prior examination performed earlier on the same date 07/02/2020. Small bilateral pleural effusions slightly increased, larger on the left. Assessment and Plan - Diagnosis (1) Septic shock Is this a current diagnosis for this admission?: Yes (2) Multiorgan failure Is this a current diagnosis for this admission?: Yes (3) Acute hypoxemic respiratory failure Is this a current diagnosis for this admission?: Yes Plan: * At this point, the patient has acute hypoxemic and hypercapnic respiratory failure. * Titrate vent settings based on ABG results. (4) Shock liver Is this a current diagnosis for this admission?: Yes (5) Acute kidney injury Is this a current diagnosis for this admission?: Yes Plan: * Monitor urine output. * Renal dosing of medications. * Avoid nephrotoxic drugs. (6) Staphylococcus aureus bacteremia Is this a current diagnosis for this admission?: Yes Plan: * Start vancomycin. (7) Pneumonia due to COVID-19 virus Is this a current diagnosis for this admission?: Yes Plan: * Already treated with azithromycin and remdesivir. * Currently on vitamin C, vitamin D3 and zinc sulfate. * Continue Decadron. (8) Diabetes mellitus type 2 in nonobese Is this a current diagnosis for this admission?: Yes (9) Hypothyroidism Qualifiers: Hypothyroidism type: unspecified Qualified Code(s): E03.9 - Hypothyroidism, unspecified Is this a current diagnosis for this admission?: Yes Critical Time Critical Time (minutes): 60 Level of Care: ICU -: 1. The care of a critical patient is a dynamic process. This note is a indirect sales representative synopsis but static in nature. The timeframe for treatments given in order is not necessarily the actual time these treatments may have been done. 2. This patient requires critical care secondary to ongoing requirements for therapy not offered or safe outside the critical care environment. Transfer to a lower level of care will result in altered life or limb morbidity and mortality. 3. Multidisciplinary rounds completed. 4. ABCDE bundle addressed.
[2020-07-03 22:00] LABS: ARTERIAL BLOOD BASE EXCESS -5.7 mmol/L; ARTERIAL BLOOD H2CO3 2.69 mmol/L (1.05-1.35); ARTERIAL BLOOD HCO3 25.5 mmol/L (20-24); ARTERIAL BLOOD PO2 48.5 mmHg (80-100); ARTERIAL BLOOD TOTAL CO2 28.2 mmol/L (23-27)
[2020-07-03 22:04] LABS: ARTERIAL BLOOD FIO2 100%; ARTERIAL BLOOD PCO2 89.3 mmHg (35-45); ARTERIAL BLOOD PH 7.07 (7.35-7.45)
[2020-07-04] MEDS ORDERED: RINGERS SOLUTION,LACTATED 1,000 ML IV ONE ×2 (00:46→03:45)
[2020-07-04] MEDS ORDERED: EPINEPHRINE INJ/PF 1 MG/1 ML AMPULE ONE (00:56)
[2020-07-04] MEDS ORDERED: EPINEPHRINE INJ 1 MG/10 ML DISP.SYRIN ONE ×2 (01:07→01:22)
[2020-07-04] MEDS: DEXTROSE 5%-WATER 250 ML with NOREPINEPHRINE BITARTRATE 4 MG IV PRN ×2 (01:45)
[2020-07-04] MEDS ORDERED: DEXTROSE 5%-WATER 250 ML with EPINEPHRINE/PF 1 MG IV PRN ×2 (03:41)
--- NOTE | 2020-07-04 03:43 | Death Summary ---
Summary Date : 07/04/20 Time of :: 02:01 Autopsy: No Resuscitation Status: Full Code - Final Diagnosis (1) Pneumonia due to COVID-19 virus Is this a current diagnosis for this admission?: Yes (2) Acute hypoxemic respiratory failure Is this a current diagnosis for this admission?: Yes Hospital Course:: JACI PALOMO 85 year old male patient of Dr. Jones who presented to the ED with recent diagnosis of positive status for COVID-19 infection and worsening shortness of breath, particularly with exertion. Patient reported associated minimally productive cough, loss of smell and taste over last one week. He claimed associated worsening generalized weakness. He admitted exposure to his granddaughter was was recently diagnosed with faulkner virus infection. He denied any diarrhea or abdominal pain. No chest pain or palpitation. His initial ED evaluation was significant for elevation of inflammatory indices and D-Dimer, electrolytes derangement, and chest X ray suggestive of left lower lobe airspace disease process. He was advised hospitalization for further evaluation and management 06/30/20: Intubated for increased WOB. Lower O2 saturations and decreasing mental status. 07/01: Remains intubated. proned @ 0200. on norepinephrine, weaning. On propofol/fentanyl for sedation. Got intermittent doses of rocuronium overnight. Afebrile overnight. WBC 24.9, increasing. On steroids. On heparin. on insulin. 07/02: Remains intubated. Supine. On norepinephrine @ 7 mcg/min. Overnight, was reported to have an episode of atrial fibrillation with rapid ventricular response, heart rate 190s. WBC 24.9>23.3>24.2. Nurse raises concern about patient being on insulin infusion and fingerstick glucose trending toward the lower range of normal. 07/03: Remains intubated. Had an episode of profound oxygen desaturation yesterday at the end of day shift, which required bag ventilation. This episode was associated with profound hypotension. Responsive to straight leg raising test. The patient was given IV fluid boluses throughout the night. Nonetheless, he is now on Levophed and vasopressin at maximum doses. He is off propofol (due to hypotension). Continues on fentanyl. Had another episode of hypoxia and hypotension overnight. Labs this morning show interval worsening in renal function and liver function compatible with shock with multiorgan failure. Blood cultures are isolating gram-positive cocci in clusters.
[2020-07-04] MEDS ORDERED: EPINEPHRINE INJ 1 MG/10 ML DISP.SYRIN IV ONE ×6 (03:45)
== END 2020-07-04 02:01 | DRG 208 ==
LOC: ER 14:42 → EH 18:17 → 3N 06-22 13:37 → ICU 06-29 10:15
PROVIDERS: ADMIT Anesthesiology; ATTEND Anesthesiology
PROC: XW033E5 Introduction of Remdesivir Anti-infective into Peripheral Vein, Percutaneous Approach, New Technology Group 5 (ICD-10-PCS; 2020-06-22)
PROC: 02HV33Z Insertion of Infusion Device into Superior Vena Cava, Percutaneous Approach (ICD-10-PCS; 2020-06-29)
PROC: B548ZZA Ultrasonography of Superior Vena Cava, Guidance (ICD-10-PCS; 2020-06-29)
PROC: 5A1945Z Respiratory Ventilation, 24-96 Consecutive Hours (ICD-10-PCS; principal; 2020-06-30)
PROC: 0BH17EZ Insertion of Endotracheal Airway into Trachea, Via Natural or Artificial Opening (ICD-10-PCS; 2020-06-30)
PROC: 03HC33Z Insertion of Infusion Device into Left Radial Artery, Percutaneous Approach (ICD-10-PCS; 2020-07-01)
DX: U07.1 COVID-19 (principal); J12.82 Pneumonia due to coronavirus disease 2019; J96.91 Respiratory failure, unspecified with hypoxia; A41.89 Other specified sepsis; R65.21 Severe sepsis with septic shock; K72.00 Acute and subacute hepatic failure without coma; J96.02 Acute respiratory failure with hypercapnia; N17.9 Acute kidney failure, unspecified; I48.91 Unspecified atrial fibrillation; E03.9 Hypothyroidism, unspecified; E11.9 Type 2 diabetes mellitus without complications; M19.90 Unspecified osteoarthritis, unspecified site; Z88.0 Allergy status to penicillin; Z79.890 Hormone replacement therapy; D69.6 Thrombocytopenia, unspecified; Z87.891 Personal history of nicotine dependence; Z79.84 Long term (current) use of oral hypoglycemic drugs; Z78.1 Physical restraint status
CPT/HCPCS: 31500; 36415; 36573; 36600; 36620; 71045; 76937; 77001; 80048; 80053; 80061; 81001; 82570; 82728; 82803; 82962; 83605; 83615; 83735; 83880; 84100; 84134; 84300; 84478; 84484; 85025; 85027; 85379; 85384; 85610; 85652; 85730; 86140; 87040; 87070; 87077; 87086; 87150; 87186; 87205; 92950; 93005; 93010; 94002; 94003; 94660; 96361; 96374; 99233; 99285; 99291; 0241U; C9113; C9803; J0171; J0330; J0456; J0610; J0696; J1100; J1644; J1650; J1815; J1940; J2405; J2704; J2930; J3010; J3370; J3490; J7030; J7040; J7050; J7060; J7120; P9047